=== PATIENT | female | born 1950 | race Caucasian/White ===

== ENCOUNTER → 2016-08-01 | Outpatient (CLI) | payer OTHER, MEDICAID ==
[2016-08-01 10:51] LABS: BASOPHILS % (AUTO) 0.7 % (0.2-1.0); EOSINOPHILS # (AUTO) 0.1 x10^3/uL (0.0-0.2); EOSINOPHILS % (AUTO) 1.5 % (0.9-2.9); HEMATOCRIT 38.7 % (36.0-47.0); HEMOGLOBIN 13.4 g/dL (12.0-16.0); LYMPHOCYTES # (AUTO) 2.1 X10^3/uL (1.3-2.9); MEAN CORPUSCULAR HEMOGLOBIN 28.3 pg (27.0-34.0); MEAN CORPUSCULAR HGB CONC 34.7 g/dL (33.0-35.0); MEAN CORPUSCULAR VOLUME 81.4 fL (80.0-100.0); MEAN PLATELET VOLUME 8.2 fL (7.4-11.0); MONOCYTES # (AUTO) 0.4 x10^3/uL (0.3-0.8); MONOCYTES % (AUTO) 6.5 % (0.0-13.0); NEUTROPHILS # (AUTO) 3.1 x10^3/uL (2.2-4.8); NEUTROPHILS % (AUTO) 54.3 % (42.0-75.0); PLATELET COUNT 213 X10^3/uL (150.0-450.0); RED BLOOD COUNT 4.75 X10^6/uL (3.5-5.4); RED CELL DISTRIBUTION WIDTH 13.9 % (11.6-16.5); WHITE BLOOD COUNT 5.7 X10^3/uL (3.6-10.0)
[2016-08-01 11:16] LABS: ALANINE AMINOTRANSFERASE 26 Units/L (12-78); ALBUMIN 3.6 g/dL (3.4-5.0); ALKALINE PHOSPHATASE 72 Units/L (46-116); ASPARTATE AMINO TRANSFERASE 24 Units/L (15-37); BLOOD UREA NITROGEN 14 mg/dL (7-18); CARBON DIOXIDE 29.7 mmol/L (21-32); CHLORIDE 107 mmol/L (98-107); CHOL/HDL RATIO 4.6 (0.0-5.0); CHOLESTEROL 197 mg/dL (0-200); CREATININE 0.82 mg/dL (0.55-1.02); GLUCOSE 104 mg/dL (65-99); HDL CHOLESTEROL 43 mg/dL (40-60); SODIUM 144 mmol/L (136-145); TRIGLYCERIDES 109 mg/dL (0-150); eGFR BLACK RACES > 60 (>60); eGFR NON BLACK RACES > 60 (>60)
== END ==
LOC: LAB 10:24
PROVIDERS: ATTEND Nurse Practitioner Family
DX: I10 Essential (primary) hypertension (principal); E78.2 Mixed hyperlipidemia; E56.8 Deficiency of other vitamins
CPT/HCPCS: 36415; 80053; 80061; 82306; 85025

== ENCOUNTER → 2016-08-15 | Outpatient (CLI) | payer OTHER, MEDICAID ==
--- NOTE | 2016-08-15 13:22 | MG ---
HISTORY: SCREENING Comparison: 06/16/2015, 01/03/2014, 06/12/2012 FINDINGS: Bilateral CC and MLO projections of the right and left breast were obtained. Heterogeneously dense fibroglandular tissue is seen to be present. No significant architectural distortion, mass or clust ered microcalcifications can be observed to suggest malignancy. No skin thickening or nipple retrac tion is appreciated. No pathological lymphadenopathy can be identified. Benign calcifications are seen in both breasts. IMPRESSION: NO RADIOGRAPHIC EVIDENCE OF MALIGNANCY. ACR CATEGORY I - NEGATIVE EXAM. FOLLOW-UP EXAM 1 YEAR. Diagnostic CAD was utilized and reviewed. * 0 (ZERO) - ASSESSMENT INCOMPLETE; ADDITIONAL IMAGING IS NEEDED. * 1/ (ONE) - NEGATIVE. * 2/II (TWO) - BENIGN FINDINGS. * 3/III (THREE) - PROBABLY BENIGN FINDING; SHORT INTERVAL FOLLOW-UP SUGGESTED. * 4/IV (FOUR) - SUSPICIOUS ABNORMALITY; BIOPSY SHOULD BE CONSIDERED. * 5/V - HIGHLY SUSPICIOUS OF MALIGNANCY; BIOPSY SHOULD BE PERFORMED. A NEGATIVE X-RAY REPORT SHOULD NOT DELAY BIOPSY IF A DOMINANT OR CLINICALLY SUSPICIOUS MASS IS PRESENT; 4 TO 8 PERCENT OF CANCERS ARE NOT IDENTIFIED BY X-RAY. A NEG ATIVE REPORT MAY REINFORCE THE CLINICAL IMPRESSION. ADENOSIS AND DENSE BREASTS MAY OBSCURE AN UNDER LYING NEOPLASM. Reported By:
== END ==
LOC: RAD 10:49
PROVIDERS: ATTEND Nurse Practitioner Family
DX: Z12.31 Encounter for screening mammogram for malignant neoplasm of breast (principal); Z87.898 Personal history of other specified conditions
CPT/HCPCS: 77067

== ENCOUNTER → 2016-11-14 | Outpatient (CLI) | payer OTHER, MEDICAID ==
[2016-11-14 10:27] LABS: BASOPHILS % (AUTO) 0.6 % (0.2-1.0); EOSINOPHILS # (AUTO) 0.1 x10^3/uL (0.0-0.2); EOSINOPHILS % (AUTO) 1.2 % (0.9-2.9); HEMATOCRIT 38.7 % (36.0-47.0); HEMOGLOBIN 13.6 g/dL (12.0-16.0); LYMPHOCYTES # (AUTO) 2.4 X10^3/uL (1.3-2.9); LYMPHOCYTES % (AUTO) 35.9 % (21.0-51.0); MEAN CORPUSCULAR HEMOGLOBIN 28.4 pg (27.0-34.0); MEAN CORPUSCULAR HGB CONC 35.2 g/dL (33.0-35.0); MEAN CORPUSCULAR VOLUME 80.6 fL (80.0-100.0); MEAN PLATELET VOLUME 9.1 fL (7.4-11.0); MONOCYTES # (AUTO) 0.4 x10^3/uL (0.3-0.8); MONOCYTES % (AUTO) 6.3 % (0.0-13.0); NEUTROPHILS # (AUTO) 3.7 x10^3/uL (2.2-4.8); PLATELET COUNT 220 X10^3/uL (150.0-450.0); RED CELL DISTRIBUTION WIDTH 13.5 % (11.6-16.5); WHITE BLOOD COUNT 6.7 X10^3/uL (3.6-10.0)
[2016-11-14 10:36] LABS: ALANINE AMINOTRANSFERASE 17 Units/L (12-78); ALBUMIN 3.6 g/dL (3.4-5.0); ALKALINE PHOSPHATASE 80 Units/L (46-116); ASPARTATE AMINO TRANSFERASE 20 Units/L (15-37); BLOOD UREA NITROGEN 17 mg/dL (7-18); CALCIUM 8.6 mg/dL (8.5-10.1); CARBON DIOXIDE 37.2 mmol/L (21-32); CHLORIDE 102 mmol/L (98-107); COR NA(FOR HYPERGLY) 141 mmol/L (136-145); CREATININE 1.02 mg/dL (0.55-1.02); DIGOXIN 0.87 ng/mL (0.9-2); GLUCOSE 117 mg/dL (65-99); SODIUM 141 mmol/L (136-145); TOTAL PROTEIN 7.1 g/dL (6.4-8.2); eGFR BLACK RACES > 60 (>60); eGFR NON BLACK RACES 58 (>60)
== END ==
LOC: LAB 09:54
PROVIDERS: ATTEND Nurse Practitioner Family
DX: I10 Essential (primary) hypertension (principal); Z79.899 Other long term (current) drug therapy
CPT/HCPCS: 36415; 80053; 80162; 85025

== ENCOUNTER → 2017-02-01 | Outpatient (CLI) | payer OTHER, MEDICAID ==
--- NOTE | 2017-02-01 12:00 | RAD ---
Examination: Cervical spine, three views History: Neck pain Comparison reference: None Findings: AP, lateral and open-mouth odontoid views demonstrate normal segmentation and alignment. t here is a mild levoscoliosis, as well as straightening of the normal lordotic curve. There is disc na rrowing with anterior osteophyte formation at C6-7. Impression: Mild degenerative disc changes at C6-7. Alteration in cervical curvature nonspecific but may reflect neck pain or muscle spasm. Reported By:
--- NOTE | 2017-02-01 12:01 | RAD ---
Examination: Thoracic spine, AP and lateral views History: Mid back pain Findings: There is a slight dextroscoliosis. Alignment of vertebrae is anatomic. Small marginal osteo phytes are present compatible with age. The pedicles are intact. There is no paraspinal mass. Impression: No acute or significant abnormality noted. Mild physiologic spondylosis. Reported By:
--- NOTE | 2017-02-01 12:01 | RAD ---
Indication: Back pain Exam: Lumbar spine series Technique: AP and lateral views Findings: The lumbar vertebra are well aligned. There is moderate disc space narrowing throughout whi ch is most severe at L3-4 with prominent osteophytes throughout. There is mild scoliosis. The pedicle s are intact. There are moderate sclerotic changes of facets inferiorly with no pars defects. Impression: Moderate degenerative disc changes throughout which is most prominent at L3-4 with no acute abnormali ty seen. Moderate osteoarthritic changes of the facets inferiorly. Reported By:
== END | disposition home or self-care (01) | DRG 552 ==
LOC: RAD 11:17
PROVIDERS: ATTEND Nurse Practitioner Family
DX: M54.2 Cervicalgia (principal); M54.6 Pain in thoracic spine; M54.5 Low back pain; M47.896 Other spondylosis, lumbar region; M47.894 Other spondylosis, thoracic region
CPT/HCPCS: 72040; 72072; 72100

== ENCOUNTER → 2017-05-03 | Outpatient (CLI) | payer OTHER, MEDICAID ==
[2017-05-03 10:20] LABS: BASOPHILS % (AUTO) 0.6 % (0.2-1.0); EOSINOPHILS # (AUTO) 0.1 x10^3/uL (0.0-0.2); EOSINOPHILS % (AUTO) 1.3 % (0.9-2.9); HEMATOCRIT 36.3 % (36.0-47.0); HEMOGLOBIN 12.6 g/dL (12.0-16.0); LYMPHOCYTES # (AUTO) 2.4 X10^3/uL (1.3-2.9); LYMPHOCYTES % (AUTO) 39.5 % (21.0-51.0); MEAN CORPUSCULAR HEMOGLOBIN 28.2 pg (27.0-34.0); MEAN CORPUSCULAR HGB CONC 34.8 g/dL (33.0-35.0); MEAN CORPUSCULAR VOLUME 81.1 fL (80.0-100.0); MEAN PLATELET VOLUME 8.1 fL (7.4-11.0); MONOCYTES # (AUTO) 0.4 x10^3/uL (0.3-0.8); NEUTROPHILS # (AUTO) 3.2 x10^3/uL (2.2-4.8); NEUTROPHILS % (AUTO) 52.6 % (42.0-75.0); PLATELET COUNT 213 X10^3/uL (150.0-450.0); RED BLOOD COUNT 4.48 X10^6/uL (3.5-5.4); RED CELL DISTRIBUTION WIDTH 13.6 % (11.6-16.5)
[2017-05-03 10:49] LABS: ALANINE AMINOTRANSFERASE 18 Units/L (12-78); ALBUMIN 3.2 g/dL (3.4-5.0); ALKALINE PHOSPHATASE 81 Units/L (46-116); ASPARTATE AMINO TRANSFERASE 17 Units/L (15-37); BLOOD UREA NITROGEN 13 mg/dL (7-18); CALCIUM 8.6 mg/dL (8.5-10.1); CARBON DIOXIDE 30.6 mmol/L (21-32); CHLORIDE 109 mmol/L (98-107); CHOL/HDL RATIO 4.7 (0.0-5.0); CHOLESTEROL 192 mg/dL (0-200); COR CA(FOR HYPOALB) 9.2 mg/dL (8.5-10.1); COR NA(FOR HYPERGLY) 144 mmol/L (136-145); CREATININE 0.82 mg/dL (0.55-1.02); DIGOXIN < 0.20 ng/mL (0.9-2); HDL CHOLESTEROL 41 mg/dL (40-60); SODIUM 144 mmol/L (136-145); TOTAL PROTEIN 6.6 g/dL (6.4-8.2); TRIGLYCERIDES 124 mg/dL (0-150); eGFR BLACK RACES > 60 (>60); eGFR NON BLACK RACES > 60 (>60)
[2017-05-03 10:58] LABS: ERYTHROCYTE SEDIMENTATION RATE 11 MM/HOUR (0-20)
== END ==
LOC: LAB 09:46
PROVIDERS: ATTEND Nurse Practitioner Family
DX: Z51.81 Encounter for therapeutic drug level monitoring (principal); M15.0 Primary generalized (osteo)arthritis; E78.2 Mixed hyperlipidemia; I49.8 Other specified cardiac arrhythmias
CPT/HCPCS: 36415; 80053; 80061; 80162; 85025; 85652; 86140

== ENCOUNTER 2024-12-17 11:31 | Observation (INO) ==
--- NOTE | 2024-12-17 12:41 | DR.EXTPAIN ---
HPI Time seen Time Seen by Provider: 12/17/24 12:40 PCP Primary Care Physician: BAUDILIO Balbuena Complaint/Symptoms Chief Complaint Doctor Comments: 74-year-old female from home POV to ED complaining of bilateral upper extremity pain and tingling. Onset yesterday worse today Chief Complaint:: Pt states that she woke up yesterday around 9am with a sudden onset of numbness in her left hand. This has continued constantly since then. Denies any pain or tingling. Pt also c/o decreased dexterity in bilateral hands. COVID-19 Coronavirus risk:travel/contact w/high risk person: No Has patient experienced Coronavirus symptoms: No Source History Provided: Patient Mode of arrival Mode of Arrival: Ambulatory Timing Onset of Chief Complaint: 12/16/24 PMH PMH Past Medical History: Yes Past Medical History: Anxiety, Dyslipidemia, GERD, Hypertension and Sleep Apnea Past Medical History Comment: fibromyalgia,IBS Past Surgical History: Yes Surgical History: Hysterectomy Family History History of Family Medical Conditions: Yes Family Medical History: Diabetes Mellitus, Cancer, [place], Coronary Artery Disease, Heart Failure and Hypertension Social History Does patient currently use any type of tobacco product: No Have you used tobacco products in the last 12 months: No Type of Tobacco Use: None Does any household member use tobacco: No Alcohol Use: None Do you use any recreational Drugs:: No Lives With: Alone Lives Where: Home Travel Risk Coronavirus risk:travel/contact w/high risk person: No Has patient experienced Coronavirus symptoms: No Infectious screening In the last 2 months have you had wt loss of >10#?: NO Have you had fever, night sweats or hemotysis?: No Have you traveled outside the country in the last 6 months?: No Isolation: Standard ROS Review of Systems Constitutional: No Symptoms Reported Eyes: No Symptoms Reported ENTM: No Symptoms Reported Respiratoy: No Symptoms Reported Cardiovascular: No Symptoms Reported Gastrointestinal/Abdominal: No Symptoms Reported Genitourinary: No Symptoms Reported Neurological: Tingling Musculoskeletal: No Symptoms Reported Integumentary: No Symptoms Reported Hematologic/Lymphatic: No Symptoms Reported Endocrine: No Symptoms Reported Psychiatric: No Symptoms Reported All Other Systems: Reviewed and Negative PE Vital Signs Vitals: Vital Signs Temperature 98.1 F Pulse Rate 62 Respiratory Rate 20 Blood Pressure 156/80 Blood Pressure 194/77 O2 Sat by Pulse Oximetry 98 General Limitations: No Limitations General Appearance: Alert and In No Apparent Distress Head Head Exam: Normal Inspection Eyes Eye exam: Normal Appearance ENT ENT Exam: Normal Exam Neck Neck Exam: Normal Inspection Chest Chest Inspection: Normal Inspection Respiratory Respiratory Exam: Normal Lung Sounds Bilat Cardiovascular Cardiovascular Exam: Regular Rate and Normal Rhythm Abdominal Exam Abdominal Exam: Normal Inspection, Normal Bowel Sounds and Soft Extremities Extremities Exam: Normal Inspection (Exception subjective numbness left palmar surface of hand Full range of motion neurovascular intact) Back Back Exam: Normal Inspection Neurological Neurological Exam: Alert, Oriented X3 (No focal nerve signs), CN II-XII Intact, Normal Gait and Motor Sensory Deficit Psychiatric Psychiatric Exam: Normal Affect and Normal Mood Skin Skin Exam: Warm, Dry, Intact and Normal Color COURSE Treatment Treatment: Radiology called with CT read MPRESSION: 1. Suspected acute to subacute right frontoparietal 3.3 x 1.3 cm infarction. 2. No evidence of hemorrhage Ordered teleneuro consult - Discussed with teleneuro recommends Plavix recommends admission with further workup Discussed with Dr. Mcarthur Will admit admission orders placed ROR Labs Reviewed 12/17/24 12:51 12/17/24 12:51 Laboratory: WBC 7.9 X10^3/uL (3.6-10.0) 12/17/24 12:51 RBC 4.39 X10^6/uL (3.5-5.4) 12/17/24 12:51 Hgb 12.7 g/dL (12.0-16.0) 12/17/24 12:51 Hct 37.0 % (36.0-47.0) 12/17/24 12:51 MCV 84.1 fL (80.0-100.0) 12/17/24 12:51 MCH 28.8 pg (27.0-34.0) 12/17/24 12:51 MCHC 34.3 g/dL (33.0-35.0) 12/17/24 12:51 RDW 13.5 % (11.6-16.5) 12/17/24 12:51 Plt Count 243 X10^3/uL (150.0-450.0) 12/17/24 12:51 MPV 8.4 fL (7.4-11.0) 12/17/24 12:51 Neut % (Auto) 63.7 % (42.0-75.0) 12/17/24 12:51 Lymph % (Auto) 30.0 % (21.0-51.0) 12/17/24 12:51 [place] % (Auto) 5.0 % (0.0-13.0) 12/17/24 12:51 Eos % (Auto) 0.6 % (0.9-2.9) L 12/17/24 12:51 Baso % (Auto) 0.7 % (0.2-1.0) 12/17/24 12:51 Neut # (Auto) 5.0 x10^3/uL (2.2-4.8) H 12/17/24 12:51 Lymph # (Auto) 2.4 X10^3/uL (1.3-2.9) 12/17/24 12:51 [place] # (Auto) 0.4 x10^3/uL (0.3-0.8) 12/17/24 12:51 Eos # (Auto) 0.0 x10^3/uL (0.0-0.2) 12/17/24 12:51 Baso # (Auto) 0.1 X10^3/uL (0.0-0.1) 12/17/24 12:51 Absolute Nucleated RBC 0.1 /100WBC 12/17/24 12:51 Sodium 143 mmol/L (136-145) 12/17/24 12:51 Corrected Sodium TNP 12/17/24 12:51 Potassium 3.5 mmol/L (3.5-5.1) 12/17/24 12:51 Chloride 108 mmol/L (98-107) H 12/17/24 12:51 Carbon Dioxide 28.1 mmol/L (21-32) 12/17/24 12:51 BUN 13 mg/dL (7-18) 12/17/24 12:51 Creatinine 1.06 mg/dL (0.55-1.02) H 12/17/24 12:51 Est GFR (MDRD) Af Amer > 60 (>60) 12/17/24 12:51 Est GFR (MDRD) Non-Af 54 (>60) L 12/17/24 12:51 Glucose 110 mg/dL (65-99) H 12/17/24 12:51 Calcium 8.9 mg/dL (8.5-10.1) 12/17/24 12:51 Corrected Calcium TNP 12/17/24 12:51 Total Bilirubin 0.80 mg/dL (0.2-1.0) 12/17/24 12:51 AST 22 Units/L (15-37) 12/17/24 12:51 ALT 11 Units/L (12-78) L 12/17/24 12:51 Alkaline Phosphatase 90 Units/L (46-116) 12/17/24 12:51 Total Protein 7.1 g/dL (6.4-8.2) 12/17/24 12:51 Albumin 3.6 g/dL (3.4-5.0) 12/17/24 12:51 Globulin 3.5 g/dL (2.5-4.5) 12/17/24 12:51 Albumin/Globulin Ratio 1.0 Ratio (1.1-2.1) L 12/17/24 12:51 Specimen Type Clean catch urine 12/17/24 12:59 Urine Color [place] (YELLOW) 12/17/24 12:59 Urine Appearance Clear (CLEAR) 12/17/24 12:59 Urine pH 5.0 (5.0 - 8.0) 12/17/24 12:59 Ur Specific [place] 1.030 (1.000-1.030) 12/17/24 12:59 Urine Protein 2+ (NEGATIVE) 12/17/24 12:59 Urine Glucose (UA) Negative (NEGATIVE) 12/17/24 12:59 Urine Ketones 1+ (NEGATIVE) 12/17/24 12:59 Urine Blood 1+ (NEGATIVE) 12/17/24 12:59 Urine Nitrite Negative (NEGATIVE) 12/17/24 12:59 Urine Bilirubin 1+ (NEGATIVE) 12/17/24 12:59 Urine Urobilinogen 2+ (NORMAL) 12/17/24 12:59 Ur Leukocyte Esterase 1+ (NEGATIVE) 12/17/24 12:59 Urine RBC 3-5 /HPF (0-3) A 12/17/24 12:59 Urine WBC 3-5 /HPF (0-5) 12/17/24 12:59 Ur Squamous Epith Cells Few /HPF (NEGATIVE) 12/17/24 12:59 Amorphous Sediment 1+ /HPF (NEGATIVE) 12/17/24 12:59 Urine Bacteria Trace /HPF (NEGATIVE) 12/17/24 12:59 Hyaline Casts Few /LPF (NEGATIVE) 12/17/24 12:59 Urine Mucus Many /HPF (NEGATIVE) 12/17/24 12:59 Ur Culture Indicated? No/not indicated 12/17/24 12:59 Urine Opiates Screen Negative (NEG=<300) 12/17/24 12:59 Urine Methadone Screen Negative (NEG=<300) 12/17/24 12:59 Ur Barbiturates Screen Negative (NEG=<200) 12/17/24 12:59 Ur Phencyclidine Scrn Negative (NEG=<25) 12/17/24 12:59 Ur Amphetamines Screen Negative (NEG=<1000) 12/17/24 12:59 U Benzodiazepines Scrn Negative (NEG=<200) 12/17/24 12:59 Urine Cocaine Screen Negative (NEG=<300) 12/17/24 12:59 U Marijuana (THC) Screen Negative (NEG=<50) 12/17/24 12:59 XRAY X-ray Results: Diagnostics Reports FREDERICK GEORGE [id number] Allergy/Adv: aspirin, atorvastatin, Penicillins, Sulfa (Sulfonamide Antibiotics), tramadol Name: FREDERICK GEORGE : 1950 Sex: F Location: Order Number(s): [id number] Procedure(s):HEAD (TRAUMA) CT Ordering Physician: Jose Choi Primary Care: Sade Acosta Service Date: 12/17/24 Service Time: 1241 EXAM: CT HEAD WITHOUT CONTRAST HISTORY: Pt states that she woke up yesterday around 9am with a sudden onset of numbness in her left hand. This has continued constantly since then. Denies any pain or tingling. Pt also c/o decreased dexterity in bilateral hands.; COMPARISON: None. TECHNIQUE: Axial CT images were obtained through the brain without contrast. All CT scans at this facility use dose modulation, iterative reconstruction, and/or weight based dosing when appropriate to reduce radiation dose to as low as reasonably achievable. FINDINGS: No acute intracranial hemorrhage or extra-axial fluid collection. No mass effect or midline shift. Right frontoparietal 3.3 x 1.3 area of hypoattenuation and mitchell-white differentiation loss. 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 No mass effect or midline shift. No hydrocephalus. Paranasal sinuses and mastoid air cells are well-aerated. Intact calvarium. IMPRESSION: 1. Suspected acute to subacute right frontoparietal 3.3 x 1.3 cm infarction. 2. No evidence of hemorrhage. THIS IS AN ELECTRONICALLY VERIFIED FINAL REPORT 12/17/2024 1:41 PM - Electronically signed by Sujit Beltran MD Opioid Opioid Risk Tool Age (Aly box if 16-45): No History of Preadolescent Sexual Abuse: No Total: 0 Total Score Risk Category: Low Risk Copyright: [facility] predicting aberrant behaviors Discharge Plan Diagnosis Discharge Problem: Focal infarction of brain Discharge Plan Patient Disposition: 09 ADMITTED INPATIENT Condition: Stable Prescriptions: No Action chlorthalidone 25 mg tablet 25 mg PO QDAY 90 Days Qty: 90 0RF rosuvastatin 10 mg tablet 10 mg PO QHS MDD 1 90 Days Qty: 90 0RF escitalopram oxalate 20 mg tablet 20 mg PO QDAY MDD 1 90 Days Qty: 90 0RF omeprazole 40 mg capsule,delayed release(DR/EC) 40 mg PO QDAY MDD 1 90 Days Qty: 90 0RF diclofenac sodium [Voltaren Arthritis Pain] 1 % gel 2 g topical QID MDD 4 grams 30 Days Qty: 100 3RF naproxen sodium [Aleve] 220 mg tablet 220 mg PO Q12H MDD 2 PRN (Reason: pain/knee) 10 Days Qty: 20 0RF Rx Instructions: Samples shared with pt to take w/ food short term # 2 x 10 sample packs = 20 tabs Drysol Dab-O-Matic 20 % solution 1 applic topical 2XW MDD 2 times a week PRN (Reason: excessive moisture) Qty: 35 0RF docusate sodium [Colace] 100 mg capsule 100 mg PO QDAY MDD 1 PRN (Reason: constipation/as needed use when needed) 90 Days Qty: 90 0RF losartan 100 mg tablet 100 mg PO QDAY Qty: 90 0RF lubiprostone 8 mcg capsule 8 mcg PO QDAY MDD 1 90 Days Qty: 90 0RF metoprolol tartrate 50 mg tablet 50 mg PO Q12H MDD 2 90 Days Qty: 180 0RF potassium chloride 20 mEq tablet,ER particles/crystals 20 meq PO QDAY MDD 1 90 Days Qty: 90 0RF verapamil 300 mg capsule, [address] 300 mg PO QHS MDD 1 30 Days Qty: 30 2RF Rx Instructions: remind patient to d/c amlodipine Health Concerns: Post Hospitalization: new medications and changes needed to prevent readmission or further decline. Pt educated and given instructions on all concerns. Plan of Treatment: Continue with present treatment and follow up plan. Pt is to keep follow up appointment as instructed and take medications as ordered. Follow ups/Referrals Follow ups/Referrals: SADE ACOSTA FNP [Primary Care Provider, MEDICAL] - 3 days Instructions Print Language: KYRGYZ
[2024-12-17 13:06] LABS: MEAN PLATELET VOLUME 8.4 fL (7.4-11.0); RED CELL DISTRIBUTION WIDTH 13.5 % (11.6-16.5)
[2024-12-17 13:12] LABS: BLOOD/HEMOGLOBIN,URINE 1+ (NEGATIVE); LEUKOCYTE ESTERASE ,URINE 1+ (NEGATIVE); NITRITES,URINE NEGATIVE (NEGATIVE)
[2024-12-17 13:17] LABS: CREATININE 1.06 mg/dL (0.55-1.02); eGFR NON BLACK RACES 54 (>60)
[2024-12-17 13:19] LABS: APPEARANCE,URINE CLEAR (CLEAR)
[2024-12-17 13:20] LABS: HYALINE CASTS, URINE FEW /LPF (NEGATIVE); SQUAMOUS EPITHELIAL CELL,UR FEW /HPF (NEGATIVE)
--- NOTE | 2024-12-17 13:44 | CT ---
EXAM: CT HEAD WITHOUT CONTRAST HISTORY: Pt states that she woke up yesterday around 9am with a sudden onset of numbness in her left hand. This has continued constantly since then. Denies any pain or tingling. Pt also c/o decreased dexterity in bilateral hands.; COMPARISON: None. TECHNIQUE: Axial CT images were obtained through the brain without contrast. All CT scans at this facility use dose modulation, iterative reconstruction, and/or weight based dosing when appropriate to reduce radiation dose to as low as reasonably achievable. FINDINGS: No acute intracranial hemorrhage or extra-axial fluid collection. No mass effect or midline shift. Right frontoparietal 3.3 x 1.3 area of hypoattenuation and mitchell-white differentiation loss. 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 No mass effect or midline shift. No hydrocephalus. Paranasal sinuses and mastoid air cells are well-aerated. Intact calvarium. IMPRESSION: 1. Suspected acute to subacute right frontoparietal 3.3 x 1.3 cm infarction. 2. No evidence of hemorrhage. THIS IS AN ELECTRONICALLY VERIFIED FINAL REPORT 12/17/2024 1:41 PM - Electronically signed by Sujit Beltran MD
[2024-12-17 14:19] LABS: INR 1.09 (0.8-1.3)
[2024-12-17] MEDS: PLAVIX PO ONE (14:45)
[2024-12-17] MEDS ORDERED: TYLENOL 325 MG TAB PO PRN (14:50)
[2024-12-17] MEDS ORDERED: ULTRAM PO PRN (14:50)
[2024-12-17] MEDS ORDERED: CONSULT PHARMACY - POTASSIUM & MAGNESIUM XX SCH (15:00)
--- NOTE | 2024-12-17 15:38 | TELESTROKE ---
[facility] Consult Date of Consult Date of Exam: 12/17/24 Time of Arrival to the ED: 11:31 Allergies Allergies Allergy/AdvReac Type Severity Reaction Status Date / Time aspirin Allergy Unknown Verified 03/13/24 18:16 atorvastatin (Lipitor) Allergy Unknown Verified 12/06/22 10:56 Penicillins Allergy Unknown Verified 12/06/22 10:56 Sulfa (Sulfonamide Allergy Unknown Itching; Verified 12/06/22 10:56 Antibiotics) Rash tramadol Allergy Unknown Verified 12/06/22 10:56 Vital Signs Vital Signs: Temp Pulse Resp BP Pulse Ox O2 Del Method 12/17/24 12:30 156/80 12/17/24 11:46 98.1 F 62 20 194/77 98 Room Air History of Present Illness History of Present Illness: [facility] Patient Name:Christy Wynne Date of :1950 Identification Number: Date of Service:12/17/2024 13:58:05 Diagnosis:I63.89 - Cerebrovascular accident (CVA) due to other mechanism ([facility]) Impression: 74 years old right handed woman with history of HTN presents complaining of paresthesia to the left hand since last night at 23:00. She denies associated symptoms. Current NIHSS is 0. NCCT shows an area of acute/subacute infarction in the right frontoparietal area. Recommend to initiate Plavix 75 mg and to admit for further work-up. Allow for permissive HTN. Inpatient Neurology to follow. Our recommendations are outlined below. Recommendations: Stroke/Telemetry Floor Neuro Checks (Q4) Bedside Swallow Eval DVT Prophylaxis IV Fluids, Normal Saline Head of Bed 30 Degrees Euglycemia and Avoid Hyperthermia (PRN Acetaminophen) Initiate dual antiplatelet therapy with Aspirin 81 mg daily and Clopidogrel 75 mg daily. Antihypertensives PRN if Blood pressure is greater than 220/120 or there is a concern for End organ damage/contraindications for permissive HTN. If blood pressure is greater than 220/120 give labetalol PO or IV or Vasotec IV with a goal of 15% reduction in BP during the first 24 hours. Sign Out: Discussed with Emergency Department Provider Advanced Imaging: Advanced Imaging Deferred because: Non-disabling symptoms as verified by the patient; no cortical signs so not consistent with LVO Metrics: Last Known Well: 12/16/2024 23:00:00 Dispatch Time: 12/17/2024 13:58:04 Arrival Time: 12/17/2024 11:31:00 Initial Response Time: 12/17/2024 13:58:04Symptoms: Left hand numbness. Initial patient interaction: 12/17/2024 14:00:52 NIHSS Assessment Completed: 12/17/2024 14:07:02Patient is not a candidate for Thrombolytic. Thrombolytic Medical Decision: 12/17/2024 14:07:04Patient was not deemed candidate for Thrombolytic because of following reasons: LKW outside 4.[address] Head: I personally reviewed all the CT images that were available to me and it showed: possible acute infarction right frontoparietal area Primary Provider Notified of Diagnostic Impression and Management Plan on: 12/17/2024 14:12:16 History of Present Illness:Patient is a 74 year old Female. Patient was brought by private transportation with symptoms of Left hand numbness. Patient is a 74 years old right handed woman with history of HTN who presents to the ED complaining of numbness to the left hand that started suddenly last night at 23:00. She denies any other associated symptoms as dizziness, headache, weakness, or difficulty walking. Past Medical History: Hypertension There is no history of Diabetes Mellitus There is no history of Stroke Medications: No Anticoagulant use No Antiplatelet use Reviewed EMR for current medications Allergies: Reviewed Description:aspirin Social History: Smoking: No Alcohol Use: No Family History: There is no family history of premature cerebrovascular disease pertinent to this consultation ROS : 14 Points Review of Systems was performed and was negative except mentioned in HPI. Past Surgical History: There Is No Surgical History Contributory To Todays Visit Examination: BP(156/87),Pulse(62), 1A: Level of Consciousness - Alert; keenly responsive+ 0 1B: Ask Month and Age - Both Questions Right+ 0 1C: Blink Eyes & Squeeze Hands - Performs Both Tasks+ 0 2: Test Horizontal Extraocular Movements - Normal+ 0 3: Test Visual Zhou - No Visual Loss+ 0 4: Test Facial Palsy (Use Grimace if Obtunded) - Normal symmetry+ 0 5A: Test Left Arm Motor Drift - No Drift for 10 Seconds+ 0 5B: Test Right Arm Motor Drift - No Drift for 10 Seconds+ 0 6A: Test Left Leg Motor Drift - No Drift for 5 Seconds+ 0 6B: Test Right Leg Motor Drift - No Drift for 5 Seconds+ 0 7: Test Limb Ataxia (FNF/Heel-Ho) - No Ataxia+ 0 8: Test Sensation - Normal; No sensory loss+ 0 9: Test Language/Aphasia - Normal; No aphasia+ 0 10: Test Dysarthria - Normal+ 0 11: Test Extinction/Inattention - No abnormality+ 0 NIHSS Score:0 Pre-Morbid Modified Florence Scale:0 Points = No symptoms at all Spoke with :Dr. Choi This consult was conducted in real time using interactive audio and video technology. Patient was informed of the technology being used for this visit and agreed to proceed. Patient located in hospital and provider located at home/office setting. Patient is being evaluated for possible acute neurologic impairment and high probability of imminent or life-threatening deterioration. I spent total of 35 minutes providing care to this patient, including time for face to face visit via telemedicine, review of medical records, imaging studies and discussion of findings with providers, the patient and/or family. Dr Brenda Yanez [facility] For Inpatient follow-up with [facility] physician please call [facility] at . As we are not an outpatient service for any post hospital discharge needs please contact the hospital for assistance. If you have any questions for the [facility] physicians or need to reconsult for clinical or diagnostic changes please contact us via [facility] at . Signature :Brenda Yanez Medical Decision Making 12/17/24 12:51 12/17/24 12:51 Labs: Laboratory Results - last 24 hr 12/17/24 12/17/24 12:51 12:59 WBC 7.9 RBC 4.39 Hgb 12.7 Hct 37.0 MCV 84.1 MCH 28.8 MCHC 34.3 RDW 13.5 Plt Count 243 MPV 8.4 Neut % (Auto) 63.7 Lymph % (Auto) 30.0 [place] % (Auto) 5.0 Eos % (Auto) 0.6 L Baso % (Auto) 0.7 Neut # (Auto) 5.0 H Lymph # (Auto) 2.4 Dare # (Auto) 0.4 Eos # (Auto) 0.0 Baso # (Auto) 0.1 Absolute Nucleated RBC 0.1 Sodium 143 Corrected Sodium TNP Potassium 3.5 Chloride 108 H Carbon Dioxide 28.1 BUN 13 Creatinine 1.06 H Est GFR (MDRD) Af Amer > 60 Est GFR (MDRD) Non-Af 54 L Glucose 110 H Calcium 8.9 Corrected Calcium TNP Total Bilirubin 0.80 AST 22 ALT 11 L Alkaline Phosphatase 90 Total Protein 7.1 Albumin 3.6 Globulin 3.5 Albumin/Globulin Ratio 1.0 L Specimen Type Clean catch urine Urine Color [place] Urine Appearance Clear Urine pH 5.0 Ur Specific [place] 1.030 Urine Protein 2+ Urine Glucose (UA) Negative Urine Ketones 1+ Urine Blood 1+ Urine Nitrite Negative Urine Bilirubin 1+ Urine Urobilinogen 2+ Ur Leukocyte Esterase 1+ Urine RBC 3-5 A Urine WBC 3-5 Ur Squamous Epith Cells Few Amorphous Sediment 1+ Urine Bacteria Trace Hyaline Casts Few Urine Mucus Many Ur Culture Indicated? No/not indicated Urine Opiates Screen Negative Urine Methadone Screen Negative Ur Barbiturates Screen Negative Ur Phencyclidine Scrn Negative Ur Amphetamines Screen Negative U Benzodiazepines Scrn Negative Urine Cocaine Screen Negative U Marijuana (THC) Screen Negative
[2024-12-17] MEDS: LOPRESSOR TAB 50 MG PO SCH (16:03)
[2024-12-17] MEDS: K-DUR TAB 20 MEQ PO SCH (16:03)
--- NOTE | 2024-12-17 17:04 | MRI ---
EXAMINATION: BRAIN W/O CON HISTORY: AMS/ POSS. STROKE ; . COMPARISON STUDY: CT brain 12/17/2024 TECHNIQUE: Sagittal T1, axial T1, axial T2, axial proton density, axial diffusion weighted images and coronal FLAIR images were obtained through the brain. FINDINGS: There is restricted diffusion within the right frontoparietal region representing nonhemorrhagic acute infarct in this region. No hemorrhage, midline shift or obstructive hydrocephalus. Atrophy and deep white matter ischemic changes. Encephalomalacia within the right occipital region. Anaya-white matter differentiation is maintained throughout. There are no intra-axial or extra-axial collections noted. There are normal flow voids within the middle cerebral arteries as well as the basilar artery. . Globes and retro-orbital structures are unremarkable. The sinuses demonstrate chronic right maxillary and ethmoid sinusitis. Cerebellopontine angles are normal. On the sagittal images cervicomedullary junction is normal. Normal bone marrow signal is seen within the clivus and cervical spine. Pituitary is unremarkable. Normal midline structures are present. There is no other abnormal signal on the FLAIR, diffusion weighted sequences and gradient echo images.. IMPRESSION: Acute nonhemorrhagic infarct within the right frontoparietal region. No midline shift or obstructive hydrocephalus. Atrophy and deep white matter ischemic changes. Encephalomalacia in the right occipital region. No restricted diffusion in this region. THIS IS AN ELECTRONICALLY VERIFIED FINAL REPORT 12/17/2024 5:00 PM - Electronically signed by Forest Mejias MD
[2024-12-17 18:12] VITALS: BMI 24.2
[2024-12-17] MEDS: CALAN SR 240 MG PO SCH (20:59)
[2024-12-17] MEDS ORDERED: VERAPAMIL PO SCH (21:00)
[2024-12-17] MEDS: VISTARIL PO PRN (22:40)
[2024-12-17] MEDS: OMNIPAQUE 350 mg/mL 100 mL BTL 100 ML ONE (22:42)
[2024-12-17] MEDS: PLAVIX ONE (22:42)
[2024-12-18 06:13] LABS: MEAN PLATELET VOLUME 9.1 fL (7.4-11.0); RED CELL DISTRIBUTION WIDTH 13.7 % (11.6-16.5)
[2024-12-18 06:32] LABS: COR CA(FOR HYPOALB) 9.2 mg/dL (8.5-10.1); CREATININE 0.89 mg/dL (0.55-1.02); eGFR NON BLACK RACES > 60 (>60)
[2024-12-18] MEDS ORDERED: CONSULT PHARMACY - POTASSIUM & MAGNESIUM XX SCH ×2 (07:00)
[2024-12-18] MEDS ORDERED: LEXAPRO ONE (08:39)
[2024-12-18] MEDS: CHLORTHALIDONE PO SCH (08:56)
[2024-12-18] MEDS: PLAVIX PO SCH (08:56)
[2024-12-18] MEDS: LEXAPRO PO SCH (08:57)
[2024-12-18] MEDS: K-DUR TAB 20 MEQ PO ONE (08:57)
[2024-12-18] MEDS: COZAAR PO SCH (08:57)
[2024-12-18] MEDS ORDERED: OMNIPAQUE 350 mg/mL 100 mL BTL 100 ML ONE (10:46)
--- NOTE | 2024-12-18 11:48 | CT ---
EXAM: CT ARTERIOGRAM NECK WITH CONTRAST AND 3D REFORMATIONS HISTORY: cva, hand numb; . COMPARISON: CT head dated 12/17/2024. TECHNIQUE: Axial CTA images were obtained from the aortic arch through the skull base after uneventful administration of contrast. Coronal, sagittal as well as 3D reformations were post processed on an independent workstation. When appropriate, NASCET criteria was used for the estimation of stenosis. All CT scans at this facility use dose modulation, iterative reconstruction, and/or weight based dosing when appropriate to reduce radiation dose to as low as reasonably achievable. FINDINGS: Left carotid: Proximal left common carotid artery is obscured by streak artifact from contrast bolus in the left innominate vein. Visualized left common carotid artery is widely patent. Mild calcified plaque at the left carotid bifurcation without stenosis. Left internal carotid artery is widely patent. Right carotid: Widely patent right common carotid artery. Patent right carotid bifurcation and right internal carotid artery without occlusion or evidence of stenosis. Vertebral arteries: Left dominant vertebral artery is widely patent. Right dominant is somewhat diminutive without focal occlusion or stenosis identified. Aortic arch: Partially obscured by contrast bolus artifact. Visualized portion of the aortic arch are normal caliber with mild calcified plaque. BONES: No acute osseous findings. Mild cervical spondylosis with reversal of lordosis centered at C4-C5. ADDITIONAL FINDINGS: No acute findings in the soft tissues of the neck. Mild emphysema in the visualized lungs. IMPRESSION: No evidence of focal stenosis or occlusion in the carotid or vertebral arteries. THIS IS AN ELECTRONICALLY VERIFIED FINAL REPORT 12/18/2024 11:45 AM - Electronically signed by Sujit Beltran MD
--- NOTE | 2024-12-18 12:57 | DR.H&P ---
H&P History & Physical for Day of: H&P Date: 12/18/24 Chief Complaint Chief Complaint: left hand tingling History of Present Illness History of Present Illness: Patient is a 74-year-old female with a past medical history of hypertension, depression, hyperlipidemia and GERD presented with 2- day history of left hand tingling. She denies any weakness of her arm or leg. Denies any difficulty in swallowing or changes in her speech. ER workup included CT brain which did show acute to subacute infarct. Teleneuro consult was done and recommended Plavix since patient is allergic to aspirin. MRI brain was ordered which also showed acute frontoparietal region infarct. Patient was admitted for further management. She does report some tingling in her left hand, denies any other neurological deficits. Labs/imaging reviewed: -WBC 8.2 hemoglobin 11.7 potassium 3.7 creatinine 0.89 glucose 95 - CT brain and MRI brain reviewed - UA negative Plan: Admit to [facility] with telemetry. Neurochecks. PT/OT consult. CTA neck pending. Continue Plavix. Patient reports having a rash with aspirin. Increase Crestor dose. Discussed lifestyle modifications. Resume home medications as appropriate. Replace electrolytes as per protocol. Monitor a.m. labs and imaging. Concern for clinical assessment, reviewing labs and imaging, physical exam, decision making and documentation greater than 45 minutes. Past Medical History Past Medical History: Anxiety, Dyslipidemia, GERD, Hypertension and Sleep Apnea Past Surgical History Surgical History: Hysterectomy Family History Family Medical History: Diabetes Mellitus, Cancer, [place], Coronary Artery Disease, Heart Failure and Hypertension Social History Does patient currently use any type of tobacco product: No Have you used tobacco products in the last 12 months: No Type of Tobacco Use: None Does any household member use tobacco: No Alcohol Use: None Drug Use: None Medications Home Medications: Home Medications Medication Instructions Recorded Confirmed Type tizanidine 4 mg tablet 4 mg PO BID PRN muscle spasm 12/17/24 12/17/24 History Allergies Allergies Allergy/AdvReac Type Severity Reaction Status Date / Time aspirin Allergy Unknown Verified 03/13/24 18:16 atorvastatin (Lipitor) Allergy Unknown Verified 12/06/22 10:56 Penicillins Allergy Unknown Verified 12/06/22 10:56 Sulfa (Sulfonamide Allergy Unknown Itching; Verified 12/06/22 10:56 Antibiotics) Rash tramadol Allergy Unknown Verified 12/06/22 10:56 NSAIDS (Non-Steroidal Allergy Verified 12/17/24 17:31 Anti-Inflamma benzyl benzoate Allergy Uncoded 12/17/24 17:31 beta-adrenergic blockers Allergy Uncoded 12/17/24 17:31 celecoxib congeners Allergy Uncoded 12/17/24 17:31 loop diuretics Allergy Uncoded 12/17/24 17:31 polymyxins Allergy Uncoded 12/17/24 17:31 Labs 12/18/24 05:07 12/18/24 05:07 Labs: Laboratory WBC 8.2 X10^3/uL (3.6-10.0) 12/18/24 05:07 RBC 3.96 X10^6/uL (3.5-5.4) 12/18/24 05:07 Hgb 11.7 g/dL (12.0-16.0) L 12/18/24 05:07 Hct 33.1 % (36.0-47.0) L 12/18/24 05:07 MCV 83.6 fL (80.0-100.0) 12/18/24 05:07 MCH 29.6 pg (27.0-34.0) 12/18/24 05:07 MCHC 35.4 g/dL (33.0-35.0) H 12/18/24 05:07 RDW 13.7 % (11.6-16.5) 12/18/24 05:07 Plt Count 228 X10^3/uL (150.0-450.0) 12/18/24 05:07 MPV 9.1 fL (7.4-11.0) 12/18/24 05:07 Neut % (Auto) 53.6 % (42.0-75.0) 12/18/24 05:07 Lymph % (Auto) 38.2 % (21.0-51.0) 12/18/24 05:07 [place] % (Auto) 6.2 % (0.0-13.0) 12/18/24 05:07 Eos % (Auto) 1.6 % (0.9-2.9) 12/18/24 05:07 Baso % (Auto) 0.4 % (0.2-1.0) 12/18/24 05:07 Neut # (Auto) 4.4 x10^3/uL (2.2-4.8) 12/18/24 05:07 Lymph # (Auto) 3.1 X10^3/uL (1.3-2.9) H 12/18/24 05:07 [place] # (Auto) 0.5 x10^3/uL (0.3-0.8) 12/18/24 05:07 Eos # (Auto) 0.1 x10^3/uL (0.0-0.2) 12/18/24 05:07 Baso # (Auto) 0.0 X10^3/uL (0.0-0.1) 12/18/24 05:07 Absolute Nucleated RBC 0.2 /100WBC 12/18/24 05:07 PT 14.2 SECONDS (11.8-14.3) 12/17/24 12:51 INR Target Range - 12/17/24 12:51 INR 1.09 (0.8-1.3) 12/17/24 12:51 APTT 26.5 SECONDS (22.9-36.5) 12/17/24 12:51 PTT Comment - 12/17/24 12:51 Sodium 146 mmol/L (136-145) H 12/18/24 05:07 Corrected Sodium TNP 12/18/24 05:07 Potassium 3.7 mmol/L (3.5-5.1) 12/18/24 05:07 Chloride 110 mmol/L (98-107) H 12/18/24 05:07 Carbon Dioxide 27.9 mmol/L (21-32) 12/18/24 05:07 BUN 16 mg/dL (7-18) 12/18/24 05:07 Creatinine 0.89 mg/dL (0.55-1.02) 12/18/24 05:07 Est GFR (MDRD) Af Amer > 60 (>60) 12/18/24 05:07 Est GFR (MDRD) Non-Af > 60 (>60) 12/18/24 05:07 Glucose 95 mg/dL (65-99) 12/18/24 05:07 Calcium 8.5 mg/dL (8.5-10.1) 12/18/24 05:07 Corrected Calcium 9.2 mg/dL (8.5-10.1) 12/18/24 05:07 Magnesium 2.2 mg/dL (2.0-2.9) 12/18/24 05:07 Total Bilirubin 0.50 mg/dL (0.2-1.0) 12/18/24 05:07 AST 22 Units/L (15-37) 12/18/24 05:07 ALT 12 Units/L (12-78) 12/18/24 05:07 Alkaline Phosphatase 74 Units/L (46-116) 12/18/24 05:07 Total Protein 6.2 g/dL (6.4-8.2) L 12/18/24 05:07 Albumin 3.1 g/dL (3.4-5.0) L 12/18/24 05:07 Globulin 3.1 g/dL (2.5-4.5) 12/18/24 05:07 Albumin/Globulin Ratio 1.0 Ratio (1.1-2.1) L 12/18/24 05:07 Specimen Type Clean catch urine 12/17/24 12:59 Urine Color [place] (YELLOW) 12/17/24 12:59 Urine Appearance Clear (CLEAR) 12/17/24 12:59 Urine pH 5.0 (5.0 - 8.0) 12/17/24 12:59 Ur Specific [place] 1.030 (1.000-1.030) 12/17/24 12:59 Urine Protein 2+ (NEGATIVE) 12/17/24 12:59 Urine Glucose (UA) Negative (NEGATIVE) 12/17/24 12:59 Urine Ketones 1+ (NEGATIVE) 12/17/24 12:59 Urine Blood 1+ (NEGATIVE) 12/17/24 12:59 Urine Nitrite Negative (NEGATIVE) 12/17/24 12:59 Urine Bilirubin 1+ (NEGATIVE) 12/17/24 12:59 Urine Urobilinogen 2+ (NORMAL) 12/17/24 12:59 Ur Leukocyte Esterase 1+ (NEGATIVE) 12/17/24 12:59 Urine RBC 3-5 /HPF (0-3) A 12/17/24 12:59 Urine WBC 3-5 /HPF (0-5) 12/17/24 12:59 Ur Squamous Epith Cells Few /HPF (NEGATIVE) 12/17/24 12:59 Amorphous Sediment 1+ /HPF (NEGATIVE) 12/17/24 12:59 Urine Bacteria Trace /HPF (NEGATIVE) 12/17/24 12:59 Hyaline Casts Few /LPF (NEGATIVE) 12/17/24 12:59 Urine Mucus Many /HPF (NEGATIVE) 12/17/24 12:59 Ur Culture Indicated? No/not indicated 12/17/24 12:59 Urine Opiates Screen Negative (NEG=<300) 12/17/24 12:59 Urine Methadone Screen Negative (NEG=<300) 12/17/24 12:59 Ur Barbiturates Screen Negative (NEG=<200) 12/17/24 12:59 Ur Phencyclidine Scrn Negative (NEG=<25) 12/17/24 12:59 Ur Amphetamines Screen Negative (NEG=<1000) 12/17/24 12:59 U Benzodiazepines Scrn Negative (NEG=<200) 12/17/24 12:59 Urine Cocaine Screen Negative (NEG=<300) 12/17/24 12:59 U Marijuana (THC) Screen Negative (NEG=<50) 12/17/24 12:59 Blood Type O POSITIVE 12/17/24 14:15 Antibody Screen Negative 12/17/24 14:15 Review of Systems Constitutional: No Symptoms Reported Eyes: No Symptoms Reported ENT: No Symptoms Reported Respiratory: No Symptoms Reported Cardiovascular: No Symptoms Reported Gastrointestinal: No Symptoms Reported Genitourinary: No Symptoms Reported Musculoskeletal: No Symptoms Reported Skin: No Symptoms Reported Neurological: No Symptoms Reported Physical Exam Vital Signs: Vital Signs Temperature 98.3 F Pulse Rate [Bilateral Radial] 60 Respiratory Rate 18 Blood Pressure [Right Arm] 151/73 O2 Sat by Pulse Oximetry 97 Oriented: Normal Respiratory: Clear Throughout Cardiovascular: Normal Auscultation: Bowel Sounds: Normal Palpation: Normal Tenderness: Normal Skin: Normal Musculoskeletal: Normal Psychiatric: Normal Mood Description: Calm Affect: Normal Speech Pattern: Clear and Appropriate Assessment/Plan (1) Acute CVA (cerebrovascular accident): Status: Acute (2) Anxiety: Status: Chronic (3) Chronic gastroesophageal reflux disease: Status: None (4) Fibromyalgia: Status: None (5) Benign hypertension: Status: None (6) Mixed hyperlipidemia: Status: None Review H&P Reviewed: Yes Patient was examined?: Yes
[2024-12-18] MEDS: MAALOX or MYLANTA PO PRN (19:25)
[2024-12-18] MEDS: CRESTOR TAB 10 MG PO SCH (21:44)
[2024-12-19 06:18] LABS: MEAN PLATELET VOLUME 9.4 fL (7.4-11.0); RED CELL DISTRIBUTION WIDTH 13.7 % (11.6-16.5)
[2024-12-19 06:33] LABS: COR CA(FOR HYPOALB) 9.2 mg/dL (8.5-10.1); CREATININE 1.15 mg/dL (0.55-1.02); eGFR NON BLACK RACES 49 (>60)
[2024-12-19] MEDS ORDERED: LEXAPRO ONE (08:56)
--- NOTE | 2024-12-19 10:56 | PCM.PROG ---
Progress Note Progress Note for Day of Date of Exam: 12/19/24 Subjective Subjective: Patient is a 74-year-old female admitted for acute CVA. This morning she is resting comfortably in bed. She reports still having some left hand tingling sensation however everything else she reports is back to her baseline. She has been ambulating around the room. Labs/imaging: WBC 9, hemoglobin 11.7, platelets 226, sodium 144, potassium 4.1, creatinine 1.15, glucose 105, neck CTA was negative for any significant stenosis. Will otherwise continue with physical therapy. Patient would like to go home with home health and home for PT. This will be arranged. She did have some bradycardia, morning Lopressor was held. Will decrease dose to half tablet. Continue to monitor. Otherwise continue current treatment plan. Continue closely monitor follow-up labs/imaging. Past Medical Family Social History Allergies: Allergies aspirin Allergy (Unknown, Verified 03/13/24 18:16) atorvastatin (Lipitor) Allergy (Unknown, Verified 12/06/22 10:56) Reason: Drug allergy Penicillins Allergy (Unknown, Verified 12/06/22 10:56) Sulfa (Sulfonamide Antibiotics) Allergy (Unknown, Verified 12/06/22 10:56) Itching; Rash Onset Date: 05/23/2016 tramadol Allergy (Unknown, Verified 12/06/22 10:56) Reason: Drug allergy; Comments: causes vomiting. NSAIDS (Non-Steroidal Anti-Inflamma Allergy (Verified 12/17/24 17:31) benzyl benzoate Allergy (Uncoded 12/17/24 17:31) beta-adrenergic blockers Allergy (Uncoded 12/17/24 17:31) celecoxib congeners Allergy (Uncoded 12/17/24 17:31) loop diuretics Allergy (Uncoded 12/17/24 17:31) polymyxins Allergy (Uncoded 12/17/24 17:31) Review of Systems ROS changes noted: see HPI Vital Signs and I&O's Vital Signs: Vital Signs Temperature 98.0 F Pulse Rate [Bilateral Radial] 50 Respiratory Rate 17 Blood Pressure [Right Arm] 99/54 O2 Sat by Pulse Oximetry 92 Intake and Output: Intake & Output 12/16/24 12/17/24 12/18/24 12/19/24 23:59 23:59 23:59 23:59 Intake Total 420 / 420 1140 / 1140 100 / 100 Balance 420 / 420 1140 / 1139 Physical Exam Oriented: Normal Respiratory: Normal Cardiovascular: Normal Auscultation: Bowel Sounds: Normal Tenderness: Normal Skin: Normal Musculoskeletal: Normal Psychiatric: Normal Mood Description: Calm Affect: Normal Speech Pattern: Clear and Appropriate Laboratory and Diagnostics 12/19/24 05:09 12/19/24 05:09 Labs: Laboratory WBC 9.0 X10^3/uL (3.6-10.0) 12/19/24 05:09 RBC 3.95 X10^6/uL (3.5-5.4) 12/19/24 05:09 Hgb 11.7 g/dL (12.0-16.0) L 12/19/24 05:09 Hct 33.4 % (36.0-47.0) L 12/19/24 05:09 MCV 84.6 fL (80.0-100.0) 12/19/24 05:09 MCH 29.6 pg (27.0-34.0) 12/19/24 05:09 MCHC 35.0 g/dL (33.0-35.0) 12/19/24 05:09 RDW 13.7 % (11.6-16.5) 12/19/24 05:09 Plt Count 226 X10^3/uL (150.0-450.0) 12/19/24 05:09 MPV 9.4 fL (7.4-11.0) 12/19/24 05:09 Neut % (Auto) 54.7 % (42.0-75.0) 12/19/24 05:09 Lymph % (Auto) 36.7 % (21.0-51.0) 12/19/24 05:09 [place] % (Auto) 6.7 % (0.0-13.0) 12/19/24 05:09 Eos % (Auto) 1.6 % (0.9-2.9) 12/19/24 05:09 Baso % (Auto) 0.3 % (0.2-1.0) 12/19/24 05:09 Neut # (Auto) 4.9 x10^3/uL (2.2-4.8) H 12/19/24 05:09 Lymph # (Auto) 3.3 X10^3/uL (1.3-2.9) H 12/19/24 05:09 [place] # (Auto) 0.6 x10^3/uL (0.3-0.8) 12/19/24 05:09 Eos # (Auto) 0.1 x10^3/uL (0.0-0.2) 12/19/24 05:09 Baso # (Auto) 0.0 X10^3/uL (0.0-0.1) 12/19/24 05:09 Absolute Nucleated RBC 0.1 /100WBC 12/19/24 05:09 PT 14.2 SECONDS (11.8-14.3) 12/17/24 12:51 INR Target Range - 12/17/24 12:51 INR 1.09 (0.8-1.3) 12/17/24 12:51 APTT 26.5 SECONDS (22.9-36.5) 12/17/24 12:51 PTT Comment - 12/17/24 12:51 Sodium 144 mmol/L (136-145) 12/19/24 05:09 Corrected Sodium TNP 12/19/24 05:09 Potassium 4.1 mmol/L (3.5-5.1) 12/19/24 05:09 Chloride 108 mmol/L (98-107) H 12/19/24 05:09 Carbon Dioxide 28.7 mmol/L (21-32) 12/19/24 05:09 BUN 23 mg/dL (7-18) H 12/19/24 05:09 Creatinine 1.15 mg/dL (0.55-1.02) H 12/19/24 05:09 Est GFR (MDRD) Af Amer 60 (>60) 12/19/24 05:09 Est GFR (MDRD) Non-Af 49 (>60) L 12/19/24 05:09 Glucose 105 mg/dL (65-99) H 12/19/24 05:09 Calcium 8.5 mg/dL (8.5-10.1) 12/19/24 05:09 Corrected Calcium 9.2 mg/dL (8.5-10.1) 12/19/24 05:09 Magnesium 2.2 mg/dL (2.0-2.9) 12/18/24 05:07 Total Bilirubin 0.20 mg/dL (0.2-1.0) 12/19/24 05:09 AST 20 Units/L (15-37) 12/19/24 05:09 ALT 15 Units/L (12-78) 12/19/24 05:09 Alkaline Phosphatase 82 Units/L (46-116) 12/19/24 05:09 Total Protein 6.3 g/dL (6.4-8.2) L 12/19/24 05:09 Albumin 3.1 g/dL (3.4-5.0) L 12/19/24 05:09 Globulin 3.2 g/dL (2.5-4.5) 12/19/24 05:09 Albumin/Globulin Ratio 1.0 Ratio (1.1-2.1) L 12/19/24 05:09 Specimen Type Clean catch urine 12/17/24 12:59 Urine Color [place] (YELLOW) 12/17/24 12:59 Urine Appearance Clear (CLEAR) 12/17/24 12:59 Urine pH 5.0 (5.0 - 8.0) 12/17/24 12:59 Ur Specific [place] 1.030 (1.000-1.030) 12/17/24 12:59 Urine Protein 2+ (NEGATIVE) 12/17/24 12:59 Urine Glucose (UA) Negative (NEGATIVE) 12/17/24 12:59 Urine Ketones 1+ (NEGATIVE) 12/17/24 12:59 Urine Blood 1+ (NEGATIVE) 12/17/24 12:59 Urine Nitrite Negative (NEGATIVE) 12/17/24 12:59 Urine Bilirubin 1+ (NEGATIVE) 12/17/24 12:59 Urine Urobilinogen 2+ (NORMAL) 12/17/24 12:59 Ur Leukocyte Esterase 1+ (NEGATIVE) 12/17/24 12:59 Urine RBC 3-5 /HPF (0-3) A 12/17/24 12:59 Urine WBC 3-5 /HPF (0-5) 12/17/24 12:59 Ur Squamous Epith Cells Few /HPF (NEGATIVE) 12/17/24 12:59 Amorphous Sediment 1+ /HPF (NEGATIVE) 12/17/24 12:59 Urine Bacteria Trace /HPF (NEGATIVE) 12/17/24 12:59 Hyaline Casts Few /LPF (NEGATIVE) 12/17/24 12:59 Urine Mucus Many /HPF (NEGATIVE) 12/17/24 12:59 Ur Culture Indicated? No/not indicated 12/17/24 12:59 Urine Opiates Screen Negative (NEG=<300) 12/17/24 12:59 Urine Methadone Screen Negative (NEG=<300) 12/17/24 12:59 Ur Barbiturates Screen Negative (NEG=<200) 12/17/24 12:59 Ur Phencyclidine Scrn Negative (NEG=<25) 12/17/24 12:59 Ur Amphetamines Screen Negative (NEG=<1000) 12/17/24 12:59 U Benzodiazepines Scrn Negative (NEG=<200) 12/17/24 12:59 Urine Cocaine Screen Negative (NEG=<300) 12/17/24 12:59 U Marijuana (THC) Screen Negative (NEG=<50) 12/17/24 12:59 Blood Type O POSITIVE 12/17/24 14:15 Antibody Screen Negative 12/17/24 14:15 Plan (1) Acute CVA (cerebrovascular accident): Status: Acute (2) Anxiety: Status: Chronic (3) Chronic gastroesophageal reflux disease: Status: None (4) Fibromyalgia: Status: None (5) Benign hypertension: Status: None (6) Mixed hyperlipidemia: Status: None
[2024-12-19] MEDS: LOPRESSOR TAB 25 MG PO SCH (21:57)
[2024-12-20 04:24] VITALS: RESP 17; O2SAT 96
[2024-12-20 06:16] LABS: MEAN PLATELET VOLUME 9.4 fL (7.4-11.0); RED CELL DISTRIBUTION WIDTH 13.3 % (11.6-16.5)
[2024-12-20 06:18] LABS: COR CA(FOR HYPOALB) 9.2 mg/dL (8.5-10.1); CREATININE 1.08 mg/dL (0.55-1.02); eGFR NON BLACK RACES 53 (>60)
[2024-12-20] MEDS ORDERED: LEXAPRO ONE (08:19)
[2024-12-20 09:03] VITALS: BP 134/64; PULSE 56; TEMP 98.4
--- NOTE | 2024-12-24 16:00 | W.DIS.FURT ---
Summary of Discharge Discharge Summary of Date Date of Exam: 12/20/24 Admission Date Date of Admission: 12/17/24 Admission Diagnosis Patient Problems (Updated 12/18/24 @ 12:53 by Janice Mcarthur MD) Focal infarction of brain (Acute) I63.9 Hospital Course: Patient is a 74-year-old female admitted for acute CVA. MRI revealing acute nonhemorrhagic infarct within the right frontoparietal region. Neck CTA was negative for any significant stenosis. Patient was monitored. Her symptoms significantly improved. She did continue to have some residual left hand tingling sensation, however everything else she reports is back to her baseline. Patient has had some bradycardia, discontinued her metoprolol and instructed for her to follow-up with her PCP before restarting medication. She was discharged in stable condition. Home PT. Instructed to follow-up with her PCP in 1 week. She will continue with Plavix and statin treatment. Vital Signs: Vital Signs (72 hours) 12/17/24 11:46 12/17/24 12:30 12/17/24 14:56 Temperature 98.1 F Pulse Rate 62 Pulse Rate [Bilateral Radial] Respiratory Rate 20 20 Blood Pressure 194/77 156/80 Blood Pressure [Right Arm] O2 Sat by Pulse Oximetry 98 Oxygen Delivery Method Room Air 12/17/24 15:00 12/17/24 15:00 12/17/24 16:30 Temperature 98.4 F Pulse Rate Pulse Rate [Bilateral Radial] 52 L Respiratory Rate 22 Blood Pressure Blood Pressure [Right Arm] 202/95 195/89 O2 Sat by Pulse Oximetry 98 Oxygen Delivery Method Room Air Room Air 12/17/24 17:50 12/17/24 19:00 12/17/24 20:00 Temperature 98.1 F Pulse Rate Pulse Rate [Bilateral Radial] 60 Respiratory Rate 18 Blood Pressure Blood Pressure [Right Arm] 166/88 188/92 O2 Sat by Pulse Oximetry 97 Oxygen Delivery Method Room Air Room Air 12/17/24 22:40 12/18/24 00:00 12/18/24 04:00 Temperature 99.1 F 98.1 F Pulse Rate Pulse Rate [Bilateral Radial] 51 L 50 L Respiratory Rate 18 17 Blood Pressure Blood Pressure [Right Arm] 105/60 104/56 137/66 O2 Sat by Pulse Oximetry 95 97 Oxygen Delivery Method Room Air Room Air 12/18/24 07:00 12/18/24 08:00 12/18/24 12:00 Temperature 98.3 F 98.1 F Pulse Rate Pulse Rate [Bilateral Radial] 60 54 L Respiratory Rate 18 19 Blood Pressure Blood Pressure [Right Arm] 151/73 159/76 O2 Sat by Pulse Oximetry 97 97 Oxygen Delivery Method Room Air Room Air Room Air 12/18/24 16:00 12/18/24 19:00 12/18/24 20:00 Temperature 97.9 F 97.6 F Pulse Rate Pulse Rate [Bilateral Radial] 60 61 Respiratory Rate 18 18 Blood Pressure Blood Pressure [Right Arm] 144/68 147/87 O2 Sat by Pulse Oximetry 98 98 Oxygen Delivery Method Room Air Room Air Room Air 12/19/24 00:00 12/19/24 03:54 12/19/24 07:00 Temperature 98.4 F 98.0 F Pulse Rate Pulse Rate [Bilateral Radial] 53 L 50 L Respiratory Rate 17 17 Blood Pressure Blood Pressure [Right Arm] 81/49 99/54 O2 Sat by Pulse Oximetry 94 L 92 L Oxygen Delivery Method Room Air Room Air Room Air 12/19/24 08:00 12/19/24 12:00 12/19/24 12:54 Temperature 98.4 F 98.9 F Pulse Rate Pulse Rate [Bilateral Radial] 50 L 51 L Respiratory Rate 16 20 Blood Pressure Blood Pressure [Right Arm] 158/67 167/77 148/66 O2 Sat by Pulse Oximetry 98 95 Oxygen Delivery Method Room Air Room Air 12/19/24 16:00 12/19/24 19:00 12/19/24 20:00 Temperature 98.2 F 98.0 F Pulse Rate Pulse Rate [Bilateral Radial] 56 L 61 Respiratory Rate 18 18 Blood Pressure Blood Pressure [Right Arm] 117/64 158/68 O2 Sat by Pulse Oximetry 96 94 L Oxygen Delivery Method Room Air Room Air Room Air 12/20/24 00:00 12/20/24 02:49 12/20/24 04:00 Temperature 97.7 F 98.7 F Pulse Rate Pulse Rate [Bilateral Radial] 49 L 39 L 41 L Respiratory Rate 18 17 Blood Pressure Blood Pressure [Right Arm] 89/55 145/62 O2 Sat by Pulse Oximetry 91 L 96 Oxygen Delivery Method Room Air Room Air 12/20/24 07:00 12/20/24 08:00 Temperature 98.4 F Pulse Rate Pulse Rate [Bilateral Radial] 56 L Respiratory Rate 17 Blood Pressure Blood Pressure [Right Arm] 134/64 O2 Sat by Pulse Oximetry 96 Oxygen Delivery Method Room Air Room Air Labs: Laboratory Last Values WBC 7.8 X10^3/uL (3.6-10.0) 12/20/24 05:18 RBC 4.10 X10^6/uL (3.5-5.4) 12/20/24 05:18 Hgb 12.2 g/dL (12.0-16.0) 12/20/24 05:18 Hct 34.3 % (36.0-47.0) L 12/20/24 05:18 MCV 83.6 fL (80.0-100.0) 12/20/24 05:18 MCH 29.7 pg (27.0-34.0) 12/20/24 05:18 MCHC 35.6 g/dL (33.0-35.0) H 12/20/24 05:18 RDW 13.3 % (11.6-16.5) 12/20/24 05:18 Plt Count 224 X10^3/uL (150.0-450.0) 12/20/24 05:18 MPV 9.4 fL (7.4-11.0) 12/20/24 05:18 Neut % (Auto) 48.0 % (42.0-75.0) 12/20/24 05:18 Lymph % (Auto) 43.6 % (21.0-51.0) 12/20/24 05:18 [place] % (Auto) 6.3 % (0.0-13.0) 12/20/24 05:18 Eos % (Auto) 1.7 % (0.9-2.9) 12/20/24 05:18 Baso % (Auto) 0.4 % (0.2-1.0) 12/20/24 05:18 Neut # (Auto) 3.8 x10^3/uL (2.2-4.8) 12/20/24 05:18 Lymph # (Auto) 3.4 X10^3/uL (1.3-2.9) H 12/20/24 05:18 [place] # (Auto) 0.5 x10^3/uL (0.3-0.8) 12/20/24 05:18 Eos # (Auto) 0.1 x10^3/uL (0.0-0.2) 12/20/24 05:18 Baso # (Auto) 0.0 X10^3/uL (0.0-0.1) 12/20/24 05:18 Absolute Nucleated RBC 0.1 /100WBC 12/20/24 05:18 PT 14.2 SECONDS (11.8-14.3) 12/17/24 12:51 INR Target Range - 12/17/24 12:51 INR 1.09 (0.8-1.3) 12/17/24 12:51 APTT 26.5 SECONDS (22.9-36.5) 12/17/24 12:51 PTT Comment - 12/17/24 12:51 Sodium 143 mmol/L (136-145) 12/20/24 05:18 Corrected Sodium TNP 12/20/24 05:18 Potassium 4.3 mmol/L (3.5-5.1) 12/20/24 05:18 Chloride 106 mmol/L (98-107) 12/20/24 05:18 Carbon Dioxide 29.7 mmol/L (21-32) 12/20/24 05:18 BUN 19 mg/dL (7-18) H 12/20/24 05:18 Creatinine 1.08 mg/dL (0.55-1.02) H 12/20/24 05:18 Est GFR (MDRD) Af Amer > 60 (>60) 12/20/24 05:18 Est GFR (MDRD) Non-Af 53 (>60) L 12/20/24 05:18 Glucose 105 mg/dL (65-99) H 12/20/24 05:18 Calcium 8.5 mg/dL (8.5-10.1) 12/20/24 05:18 Corrected Calcium 9.2 mg/dL (8.5-10.1) 12/20/24 05:18 Magnesium 2.2 mg/dL (2.0-2.9) 12/18/24 05:07 Total Bilirubin 0.20 mg/dL (0.2-1.0) 12/20/24 05:18 AST 18 Units/L (15-37) 12/20/24 05:18 ALT 11 Units/L (12-78) L 12/20/24 05:18 Alkaline Phosphatase 84 Units/L (46-116) 12/20/24 05:18 Total Protein 6.3 g/dL (6.4-8.2) L 12/20/24 05:18 Albumin 3.1 g/dL (3.4-5.0) L 12/20/24 05:18 Globulin 3.2 g/dL (2.5-4.5) 12/20/24 05:18 Albumin/Globulin Ratio 1.0 Ratio (1.1-2.1) L 12/20/24 05:18 Specimen Type Clean catch urine 12/17/24 12:59 Urine Color [place] (YELLOW) 12/17/24 12:59 Urine Appearance Clear (CLEAR) 12/17/24 12:59 Urine pH 5.0 (5.0 - 8.0) 12/17/24 12:59 Ur Specific [place] 1.030 (1.000-1.030) 12/17/24 12:59 Urine Protein 2+ (NEGATIVE) 12/17/24 12:59 Urine Glucose (UA) Negative (NEGATIVE) 12/17/24 12:59 Urine Ketones 1+ (NEGATIVE) 12/17/24 12:59 Urine Blood 1+ (NEGATIVE) 12/17/24 12:59 Urine Nitrite Negative (NEGATIVE) 12/17/24 12:59 Urine Bilirubin 1+ (NEGATIVE) 12/17/24 12:59 Urine Urobilinogen 2+ (NORMAL) 12/17/24 12:59 Ur Leukocyte Esterase 1+ (NEGATIVE) 12/17/24 12:59 Urine RBC 3-5 /HPF (0-3) A 12/17/24 12:59 Urine WBC 3-5 /HPF (0-5) 12/17/24 12:59 Ur Squamous Epith Cells Few /HPF (NEGATIVE) 12/17/24 12:59 Amorphous Sediment 1+ /HPF (NEGATIVE) 12/17/24 12:59 Urine Bacteria Trace /HPF (NEGATIVE) 12/17/24 12:59 Hyaline Casts Few /LPF (NEGATIVE) 12/17/24 12:59 Urine Mucus Many /HPF (NEGATIVE) 12/17/24 12:59 Ur Culture Indicated? No/not indicated 12/17/24 12:59 Urine Opiates Screen Negative (NEG=<300) 12/17/24 12:59 Urine Methadone Screen Negative (NEG=<300) 12/17/24 12:59 Ur Barbiturates Screen Negative (NEG=<200) 12/17/24 12:59 Ur Phencyclidine Scrn Negative (NEG=<25) 12/17/24 12:59 Ur Amphetamines Screen Negative (NEG=<1000) 12/17/24 12:59 U Benzodiazepines Scrn Negative (NEG=<200) 12/17/24 12:59 Urine Cocaine Screen Negative (NEG=<300) 12/17/24 12:59 U Marijuana (THC) Screen Negative (NEG=<50) 12/17/24 12:59 Blood Type O POSITIVE 12/17/24 14:15 Antibody Screen Negative 12/17/24 14:15 Reason For Visit: INFARCT Discharge Date Discharge Date: 12/20/24 Discharge Diagnosis All Active Problems (Updated 12/18/24 @ 12:53 by Janice Mcarthur MD) Acute CVA (cerebrovascular accident) (Acute) Focal infarction of brain (Acute) Disturbance of sleep pattern associated with pain (Acute) Obstructive sleep apnea syndrome (Acute) Bradycardia with 51-60 beats per minute (Acute) Neck and shoulder pain (Acute) History of recent fall (Acute) Otitis externa of both ears (Acute) TMJ inflammation (Acute) Referred otalgia of left ear (Acute) UTI (urinary tract infection), bacterial (Acute) Angular cheilitis (Acute) Angular stomatitis (Acute) Cystitis with hematuria (Acute) Dysuria-frequency syndrome (Acute) UTI symptoms (Acute) Anxiety (Chronic) Encounter for mammogram to establish baseline mammogram (Chronic) Hypertension with goal blood pressure less than 130/80 (Chronic) Plan of Treatment: Continue with present treatment and follow up plan. Pt is to keep follow up appointment as instructed and take medications as ordered. Discharge Medications Discharge Medications: aspirin Allergy (Unknown, Verified 03/13/24 18:16) atorvastatin (Lipitor) Allergy (Unknown, Verified 12/06/22 10:56) Penicillins Allergy (Unknown, Verified 12/06/22 10:56) Sulfa (Sulfonamide Antibiotics) Allergy (Unknown, Verified 12/06/22 10:56) Itching; Rash tramadol Allergy (Unknown, Verified 12/06/22 10:56) NSAIDS (Non-Steroidal Anti-Inflamma Allergy (Verified 12/17/24 17:31) benzyl benzoate Allergy (Uncoded 12/17/24 17:31) beta-adrenergic blockers Allergy (Uncoded 12/17/24 17:31) celecoxib congeners Allergy (Uncoded 12/17/24 17:31) loop diuretics Allergy (Uncoded 12/17/24 17:31) polymyxins Allergy (Uncoded 12/17/24 17:31) CONTINUE taking the following medications tizanidine 4 mg tablet 4 mg PO BID PRN muscle spasm 12/17/24 [History] New Prescriptions clopidogrel 75 mg tablet 75 mg PO DAILY 30 days #30 tabs 12/20/24 [Rx] clopidogrel 75 mg tablet (Plavix) 75 mg PO QDAY #30 tabs 12/20/24 [Rx] losartan 50 mg tablet 100 mg (2 x 50 mg) PO QDAY 30 days #60 tabs 12/20/24 [Rx] rosuvastatin 20 mg sprinkle capsule 20 mg PO HS 30 days #30 caps 12/20/24 [Rx] verapamil 240 mg tablet,extended release 240 mg PO HS 30 days #30 tabs 12/20/24 [Rx] Discharge Disposition Assessment: No distress noted. Discharge Plan Discharge Plan Hospital Course: Patient is a 74-year-old female admitted for acute CVA. MRI revealing acute nonhemorrhagic infarct within the right frontoparietal region. Neck CTA was negative for any significant stenosis. Patient was monitored. Her symptoms significantly improved. She did continue to have some residual left hand tingling sensation, however everything else she reports is back to her baseline. Patient has had some bradycardia, discontinued her metoprolol and instructed for her to follow-up with her PCP before restarting medication. She was discharged in stable condition. Home PT. Instructed to follow-up with her PCP in 1 week. She will continue with Plavix and statin treatment. Patient Disposition: HOME HEALTH SERVICE Condition: Stable Health Concerns: Post Hospitalization: new medications and changes needed to prevent readmission or further decline. Pt educated and given instructions on all concerns. Care Plan Goals: Problem: Pain/Alteration in Comfort Goal: Improve/ Resolve Pain; Achieve Pain Tolerance Instructions: Take pain medications as prescribed. Contact your primary care provider if your pain is unrelieved or worsens. Follow up with primary care provider as directed. Plan of Treatment: Continue with present treatment and follow up plan. Pt is to keep follow up appointment as instructed and take medications as ordered. Assessment: No distress noted. Prescriptions: New clopidogrel [Plavix] 75 mg Tablet 75 mg PO QDAY Qty: 30 0RF rosuvastatin 20 mg capsule, sprinkle 20 mg PO HS 30 Days Qty: 30 0RF losartan 50 mg Tablet 100 mg PO QDAY 30 Days Qty: 60 0RF clopidogrel 75 mg Tablet 75 mg PO DAILY 30 Days Qty: 30 0RF verapamil 240 mg Tablet Extended Release 240 mg PO HS 30 Days Qty: 30 0RF Continued chlorthalidone 25 mg tablet 25 mg PO QDAY 90 Days Qty: 90 0RF rosuvastatin 10 mg tablet 10 mg PO QHS MDD 1 90 Days Qty: 90 0RF escitalopram oxalate 20 mg tablet 20 mg PO QDAY MDD 1 90 Days Qty: 90 0RF omeprazole 40 mg capsule,delayed release(DR/EC) 40 mg PO QDAY MDD 1 90 Days Qty: 90 0RF potassium chloride 20 mEq tablet,ER particles/crystals 20 meq PO QDAY MDD 1 90 Days Qty: 90 0RF verapamil 300 mg capsule, [address] 300 mg PO QHS MDD 1 30 Days Qty: 30 2RF Rx Instructions: remind patient to d/c amlodipine tizanidine 4 mg tablet 4 mg PO BID PRN (Reason: muscle spasm) Discontinued losartan 100 mg tablet 100 mg PO QDAY Qty: 90 0RF metoprolol tartrate 50 mg tablet 50 mg PO Q12H MDD 2 90 Days Qty: 180 0RF Follow ups/Referrals Follow ups/Referrals: JADEN CLINE HEALT [STAFF PHYSICIAN, Unknown] Referral Note: Referral sent 12/18/24. Nurse, PT/OT requested. BERTIN SMALL FNP [Primary Care Provider, MEDICAL] - 12/26/24 1:00 pm Instructions Instructions: Hospital Discharge After a Stroke, Stroke Prevention, [id number], Driving After a Stroke Stand Alone Forms: Find Help Web Site, [facility], Post Hospital Follow Up Care Print Language: KINYARWANDA
== END 2024-12-20 12:10 | disposition home health service (06) ==
LOC: MED/SURG 11:31 → ER 11:31 → MED/SURG 14:56
PROVIDERS: ADMIT Internal Medicine; ATTEND Internal Medicine
DX: I10 Essential (primary) hypertension; M79.7 Fibromyalgia; R94.4 Abnormal results of kidney function studies; E78.2 Mixed hyperlipidemia; F41.8 Other specified anxiety disorders; R73.09 Other abnormal glucose; R20.2 Paresthesia of skin; E87.0 Hyperosmolality and hypernatremia; R41.82 Altered mental status, unspecified; Z79.899 Other long term (current) drug therapy; I63.89 Other cerebral infarction; R00.1 Bradycardia, unspecified; K21.9 Gastro-esophageal reflux disease without esophagitis; R26.89 Other abnormalities of gait and mobility

== ENCOUNTER 2025-02-15 14:23 | Observation (INO) ==
[2025-02-15 14:41] VITALS: BMI 22.3
--- NOTE | 2025-02-15 15:27 | DR.GENAD ---
HPI Time Seen Time Seen by Provider: 02/15/25 15:25 PCP Primary Care Physician: BAUDILIO Balbuena HPI Comment HPI Comment: Patient is a 72-year-old female with history of A-fib on Eliquis and rate and rhythm control, CVA with residual left-sided paresthesia, and hypertension who presents to the ED with complaint of generalized weakness. Patient states that she was leaving her house this afternoon where her legs felt extremely weak and gave way she. She fell to the right side. She did not hit her head. No loss of consciousness. Denies any acute pain in the right shoulder or hip. Patient states that she just feels extremely weak. She denies any fevers, chills, cough, cold, congestion, NVD, abdominal pain, chest pain, shortness of breath Complaint/Symptoms Chief Complaint:: Pt reports that over the past two months since a recent stroke on 12/18/24 she has had constant generalized weakness. Pt states that over the past two days she feels like her legs are so weak that she can't stand without assistance. Pt did have a fall today while walking down her wheelchair ramp. Denies any injury from the fall. Pt states, "my legs just give out." COVID-19 Coronavirus risk:travel/contact w/high risk person: No Has patient experienced Coronavirus symptoms: No Source History Provided: Patient Mode of Arrival Mode of Arrival: Wheelchair Timing Onset of Chief Complaint: 02/13/25 PMH PMH Past Medical History: Yes Past Medical History: Anxiety, CVA, Depression, Dyslipidemia, GERD, Hypertension and Sleep Apnea Past Medical History Comment: fibromyalgia, IBS Past Surgical History: Yes Surgical History: Hysterectomy Family History History of Family Medical Conditions: Yes Family Medical History: Diabetes Mellitus, Cancer, [place], Coronary Artery Disease, Heart Failure and Hypertension Social History Does patient currently use any type of tobacco product: No Have you used tobacco products in the last 12 months: No Type of Tobacco Use: None Does any household member use tobacco: No Alcohol Use: None Do you use any recreational Drugs:: No Lives With: Family Lives Where: Home Travel Risk Coronavirus risk:travel/contact w/high risk person: No Has patient experienced Coronavirus symptoms: No Infectious screening In the last 2 months have you had wt loss of >10#?: NO Have you had fever, night sweats or hemotysis?: No Have you traveled outside the country in the last 6 months?: No Isolation: Standard ROS Review of Systems All Other Systems: Reviewed and Negative PE Vital Signs Vitals: Vital Signs Pulse Rate 67 Pulse Rate 68 Pulse Rate 65 Pulse Rate 64 Pulse Rate 64 Pulse Rate 65 Pulse Rate 66 Pulse Rate 61 Pulse Rate 61 Pulse Rate 62 Pulse Rate 65 Pulse Rate 70 Pulse Rate 70 Pulse Rate 74 Respiratory Rate 23 Respiratory Rate 22 Respiratory Rate 29 Respiratory Rate 25 Respiratory Rate 23 Respiratory Rate 22 Respiratory Rate 23 Respiratory Rate 27 Respiratory Rate 21 Respiratory Rate 23 Respiratory Rate 22 Respiratory Rate 27 Respiratory Rate 18 Respiratory Rate 69 Blood Pressure 215/92 Blood Pressure 213/86 Blood Pressure 209/91 Blood Pressure 211/106 Blood Pressure 206/87 Blood Pressure 200/84 O2 Sat by Pulse Oximetry 96 O2 Sat by Pulse Oximetry 93 O2 Sat by Pulse Oximetry 96 Other Exam Other Exam: GEN: Lying comfortably on exam bed in NAD EYES: EOMI, PERRLA HEART: RRR LUNGS: CTABL ABD: Soft, non tender, non distended, BS normal MSK: Full range of motion of bilateral upper and lower extremity NEURO: Alert and oriented x 3, cranial nerves II through XII grossly intact, strength in the bilateral upper and lower extremities 5/5 COURSE Treatment Treatment: Ordered a CBC, CMP, UA, respiratory panel, and EKG to evaluate. ROR Labs Reviewed 02/15/25 14:30 02/15/25 14:30 Laboratory: WBC 18.6 X10^3/uL (3.6-10.0) H 02/15/25 14:30 RBC 4.53 X10^6/uL (3.5-5.4) 02/15/25 14:30 Hgb 13.1 g/dL (12.0-16.0) 02/15/25 14:30 Hct 38.5 % (36.0-47.0) 02/15/25 14:30 MCV 85.1 fL (80.0-100.0) 02/15/25 14:30 MCH 28.8 pg (27.0-34.0) 02/15/25 14:30 MCHC 33.9 g/dL (33.0-35.0) 02/15/25 14:30 RDW 14.4 % (11.6-16.5) 02/15/25 14:30 Plt Count 284 X10^3/uL (150.0-450.0) 02/15/25 14:30 MPV 10.4 fL (7.4-11.0) 02/15/25 14:30 Neut % (Auto) 83.2 % (42.0-75.0) H 02/15/25 14:30 Lymph % (Auto) 11.2 % (21.0-51.0) L 02/15/25 14:30 [place] % (Auto) 5.5 % (0.0-13.0) 02/15/25 14:30 Eos % (Auto) 0.0 % (0.9-2.9) L 02/15/25 14:30 Baso % (Auto) 0.1 % (0.2-1.0) L 02/15/25 14:30 Neut # (Auto) 15.5 x10^3/uL (2.2-4.8) H 02/15/25 14:30 Lymph # (Auto) 2.1 X10^3/uL (1.3-2.9) 02/15/25 14:30 [place] # (Auto) 1.0 x10^3/uL (0.3-0.8) H 02/15/25 14:30 Eos # (Auto) 0.0 x10^3/uL (0.0-0.2) 02/15/25 14:30 Baso # (Auto) 0.0 X10^3/uL (0.0-0.1) 02/15/25 14:30 Absolute Nucleated RBC 0.0 /100WBC 02/15/25 14:30 Sodium 139 mmol/L (136-145) 02/15/25 14:30 Corrected Sodium 140 mmol/L (136-145) 02/15/25 14:30 Potassium 3.0 mmol/L (3.5-5.1) L 02/15/25 14:30 Chloride 98 mmol/L (98-107) 02/15/25 14:30 Carbon Dioxide 30.9 mmol/L (21-32) 02/15/25 14:30 BUN 28 mg/dL (7-18) H 02/15/25 14:30 Creatinine 3.68 mg/dL (0.55-1.02) H 02/15/25 14:30 Est GFR (MDRD) Af Amer 16 (>60) L 02/15/25 14:30 Est GFR (MDRD) Non-Af 13 (>60) L 02/15/25 14:30 Glucose 162 mg/dL (65-99) H 02/15/25 14:30 Calcium 9.1 mg/dL (8.5-10.1) 02/15/25 14:30 Corrected Calcium TNP 02/15/25 14:30 Total Bilirubin 0.80 mg/dL (0.2-1.0) 02/15/25 14:30 AST 308 Units/L (15-37) H 02/15/25 14:30 ALT 71 Units/L (12-78) 02/15/25 14:30 Alkaline Phosphatase 86 Units/L (46-116) 02/15/25 14:30 Total Protein 7.2 g/dL (6.4-8.2) 02/15/25 14:30 Albumin 3.5 g/dL (3.4-5.0) 02/15/25 14:30 Globulin 3.7 g/dL (2.5-4.5) 02/15/25 14:30 Albumin/Globulin Ratio 0.9 Ratio (1.1-2.1) L 02/15/25 14:30 Specimen Type Catherized urine 02/15/25 16:02 Urine Color Yellow (YELLOW) 02/15/25 16:02 Urine Appearance Hazy (CLEAR) 02/15/25 16:02 Urine pH 5.0 (5.0 - 8.0) 02/15/25 16:02 Ur Specific [place] 1.030 (1.000-1.030) 02/15/25 16:02 Urine Protein 3+ (NEGATIVE) 02/15/25 16:02 Urine Glucose (UA) Negative (NEGATIVE) 02/15/25 16: Urine Ketones Negative (NEGATIVE) 02/15/25 16: Urine Blood 5+ (NEGATIVE) 02/15/25 16: Urine Nitrite Negative (NEGATIVE) 02/15/25 16:02 Urine Bilirubin 1+ (NEGATIVE) 02/15/25 16: Urine Urobilinogen 1+ (NORMAL) 02/15/25 16: Ur Leukocyte Esterase Negative (NEGATIVE) 02/15/25 16: Urine RBC 0-2 /HPF (0-3) 02/15/25 16:02 Urine WBC 3-5 /HPF (0-5) 02/15/25 16:02 Ur Squamous Epith Cells Rare /HPF (NEGATIVE) 02/15/25 16:02 Ur Renal Epithelial Cell Few /HPF (NEGATIVE) 02/15/25 16:02 Amorphous Sediment 3+ /HPF (NEGATIVE) 02/15/25 16:02 Urine Bacteria Trace /HPF (NEGATIVE) 02/15/25 16:02 Granular Casts Many /LPF (NEGATIVE) 02/15/25 16:02 Ur Culture Indicated? No/not indicated 02/15/25 16:02 SARS-CoV-2 (PCR) Negative (NEGATIVE) 02/15/25 15:28 Influenza Type A (PCR) Negative (NEGATIVE) 02/15/25 15:28 Influenza Type B (PCR) Negative (NEGATIVE) 02/15/25 15:28 RSV (PCR) Negative (NEGATIVE) 02/15/25 15:28 S. pyogenes (TEM-PCR) Not detected (NOT DETECT) 02/15/25 15:28 XRAY X-ray Results: Name: FREDERICK GEORGE : 1950 Sex: F Location: ER Order Number(s): [id number] Procedure(s):CHEST, 1 VIEW X-RAY Ordering Physician: Rahul Frankel Primary Care: Sade Acosta Service Date: 02/15/25 Service Time: 1619 EXAM: CHEST, 1 VIEW HISTORY: weakness,cough; Pt reports that over the past two months since a recent stroke on 12/18/24 she has had constant generalized weakness. Pt states that over the past two days she feels like her legs are so weak that she can't stand without assistance. Pt did have a fall today while walking down her wheelchair ramp. Denies any injury from the fall. Pt states, "my legs just give out." COMPARISON: None available. FINDINGS: The trachea is midline. The cardiac silhouette is unremarkable. COPD the lungs are clear without focal infiltrate or effusion. The bony thorax is unremarkable. IMPRESSION: COPD No acute cardiopulmonary disease. THIS IS AN ELECTRONICALLY VERIFIED FINAL REPORT 02/15/2025 5:32 PM - Electronically signed by Mariano Meraz MD Report Electronically signed: 02/15/25 [id number] CC: Rahul Frankel Opioid Opioid Risk Tool Age (Aly box if 16-45): No History of Preadolescent Sexual Abuse: No Total: 0 Total Score Risk Category: Low Risk Copyright: Galile[employer] ROWLAND predicting aberrant behaviors Discharge Plan Diagnosis Discharge Problem: Generalized weakness, Sepsis, NAVA (acute kidney injury) Discharge Plan Patient Disposition: ADMITTED INPATIENT Condition: Stable Discharge Comment: admitted upstairs Provider Note Additional Notes Patient is a 72-year-old female with history of A-fib on Eliquis and rate and rhythm control, CVA with residual left-sided paresthesia, and hypertension who presents to the ED with complaint of generalized weakness. In ED patient was found to be tachypneic and hypertensive.Physical exam was unremarkable. Basic blood work revealed leukocytosis and NAVA. Chest x-ray reviewed by me and Did not reveal any pulmonary infiltrates or consolidations. Official read said no acute cardiopulmonary process. Urinalysis was negative for UTI. Patient does meet SIRS criteria Due to unknown etiology. Due to her symptoms of generalized weakness in setting of positive SIRS criteria and leukocytosis hospitalist was called for Admission for further workup. Dr. Raines agreed to accept the patient. She was discharged to the floor in stable condition.
[2025-02-15 15:30] LABS: RED CELL DISTRIBUTION WIDTH 14.4 % (11.6-16.5)
[2025-02-15 15:38] LABS: MEAN PLATELET VOLUME 10.4 fL (7.4-11.0)
[2025-02-15 15:39] LABS: COR NA(FOR HYPERGLY) 140 mmol/L (136-145); CREATININE 3.68 mg/dL (0.55-1.02); eGFR NON BLACK RACES 13 (>60)
--- NOTE | 2025-02-15 16:08 | EKG ---
Test Reason : "weakness" Blood Pressure : */* mmHG Vent. Rate : 63 BPM Atrial Rate : 63 BPM P-R Int : 170 ms QRS Dur : 90 ms QT Int : 608 ms P-R-T Axes : 59 47 35 degrees QTc Int : 622 ms Normal sinus rhythm Abnormal ECG No previous ECGs available Confirmed by Edgar Floyd MD ([id number]) on 02/16/2025 6:40:59 AM Referred By: Confirmed By: Edgar Floyd MD
[2025-02-15] MEDS: NS 500 ML IV 500 ML IV ONE (16:26)
[2025-02-15 16:34] LABS: BLOOD/HEMOGLOBIN,URINE 5+ (NEGATIVE); LEUKOCYTE ESTERASE ,URINE NEGATIVE (NEGATIVE); NITRITES,URINE NEGATIVE (NEGATIVE)
[2025-02-15 16:43] LABS: APPEARANCE,URINE HAZY (CLEAR)
[2025-02-15 16:45] LABS: SQUAMOUS EPITHELIAL CELL,UR RARE /HPF (NEGATIVE)
--- NOTE | 2025-02-15 17:35 | RAD ---
EXAM: CHEST, 1 VIEW HISTORY: weakness,cough; Pt reports that over the past two months since a recent stroke on 12/18/24 she has had constant generalized weakness. Pt states that over the past two days she feels like her legs are so weak that she can't stand without assistance. Pt did have a fall today while walking down her wheelchair ramp. Denies any injury from the fall. Pt states, "my legs just give out." COMPARISON: None available. FINDINGS: The trachea is midline. The cardiac silhouette is unremarkable. COPD the lungs are clear without focal infiltrate or effusion. The bony thorax is unremarkable. IMPRESSION: COPD No acute cardiopulmonary disease. THIS IS AN ELECTRONICALLY VERIFIED FINAL REPORT 02/15/2025 5:32 PM - Electronically signed by Mariano Meraz MD
[2025-02-15] MEDS: NS 1,000 ML IV 1,000 ML IV SCH ×2 (17:44→21:12)
[2025-02-15] MEDS: ROCEPHIN VIAL 1 GRAM IVP ONE (17:44)
[2025-02-15] MEDS: CATAPRES TAB 0.1 MG PO ONE (21:26)
[2025-02-16 05:08] LABS: MEAN PLATELET VOLUME 10.3 fL (7.4-11.0); RED CELL DISTRIBUTION WIDTH 14.2 % (11.6-16.5)
[2025-02-16 05:19] LABS: COR CA(FOR HYPOALB) 9.1 mg/dL (8.5-10.1); CREATININE 2.24 mg/dL (0.55-1.02); eGFR NON BLACK RACES 23 (>60)
[2025-02-16] MEDS ORDERED: CONSULT PHARMACY - POTASSIUM & MAGNESIUM XX SCH (06:00)
--- NOTE | 2025-02-16 10:03 | CT ---
EXAM: CT ABDOMEN AND PELVIS WITHOUT CONTRAST HISTORY: Elevated liver enzymes, back pain; COMPARISON: None. TECHNIQUE: Axial CT images were obtained through the abdomen and pelvis without contrast. Coronal and sagittal reformatted images were included. All CT scans at this facility use dose modulation, iterative reconstruction, and/or weight based dosing when appropriate to reduce radiation dose to as low as reasonably achievable. FINDINGS: Please note that without the use of intravenous contrast, evaluation of organ parenchyma is limited. Clear lung bases. Unenhanced liver, gallbladder, spleen, pancreas, adrenals, and kidneys are unremarkable. No biliary dilatation. Mild aortoiliac atherosclerotic calcifications without aneurysm. No lymphadenopathy. No abnormally distended or focally thickened bowel loops. Normal right lower quadrant appendix. Moderate colonic stool burden. Mild scattered colonic diverticula without surrounding inflammation. Unremarkable urinary bladder. Absent uterus. No free pelvic fluid. No acute osseous findings. Moderate lumbar spondylosis. Right buttock/flank subcutaneous edema. IMPRESSION: No acute findings in the abdomen or pelvis. Unremarkable gallbladder. No biliary dilatation. THIS IS AN ELECTRONICALLY VERIFIED FINAL REPORT 02/16/2025 10:00 AM - Electronically signed by Sujit Beltran MD
[2025-02-16] MEDS: LEXAPRO PO SCH (12:42)
[2025-02-16] MEDS: CRESTOR TAB 10 MG PO SCH (12:42)
[2025-02-16] MEDS: PLAVIX PO SCH (12:43)
[2025-02-16] MEDS: LOPRESSOR TAB 50 MG PO SCH (12:45)
[2025-02-16] MEDS: K-DUR TAB 20 MEQ PO SCH (12:45)
[2025-02-16] MEDS: TAMBOCOR PO SCH (12:46)
[2025-02-16] MEDS: ELIQUIS PO SCH (12:46)
[2025-02-16] MEDS: HYZAAR 50/12.5 MG PO SCH (12:48)
--- NOTE | 2025-02-16 13:47 | DR.H&P ---
H&P History & Physical for Day of: H&P Date: 02/16/25 Chief Complaint Chief Complaint: fall, weakness History of Present Illness History of Present Illness: Patient with multiple hospital admissions over the last 3 months. Was admitted here with pneumonia in November, [facility] with stroke last month and now with generalized weakness and fall. Patient reports she fell "right on my butt." Had to get a friend to help her get up and bring her to the ER. ER workup benign other than an NAVA and severely low potassium. [place] still very tender and sore with any movement, she still feels pretty weak, but does feel slightly improved overall. She is not sure if she will be able to return home but does not want to go to subacute rehab, if she can avoid it. Has been using the bathroom fairly well. CT of the abdomen and pelvis today was benign other than moderate stool burden. ROS: 12 point ROS negative except as noted above. PE: Well-developed, well-nourished female in no acute distress. Heart regular rate and rhythm, lungs are clear, bowel sounds are present. Speech is clear and unlabored. Mood and affect are appropriate. Able to move all extremities with no edema. Past Medical History Past Medical History: Anxiety, CVA, Depression, Dyslipidemia, GERD, Hypertension and Sleep Apnea Past Surgical History Surgical History: Hysterectomy Family History Family Medical History: Cancer, Coronary Artery Disease and Hypertension Social History Does patient currently use any type of tobacco product: No Have you used tobacco products in the last 12 months: No Type of Tobacco Use: None Does any household member use tobacco: No Alcohol Use: None Drug Use: Prescription Drugs Medications Home Medications: Home Medications Medication Instructions Recorded Confirmed Type apixaban 5 mg tablet (Eliquis) 5 mg PO BID 01/09/25 History flecainide 100 mg tablet 100 mg PO BID 01/09/2502/15 History losartan 100 1 tab PO QDAY 01/09/2502/15 History mg-hydrochlorothiazide 25 mg tablet metoprolol tartrate 100 mg tablet 100 mg PO BID 02/15/25 History rosuvastatin 40 mg tablet 40 mg PO QDAY 01/09/2502/15 History lubiprostone 8 mcg capsule 8 mcg PO QDAY 02/14/2501/26 History nifedipine 60 mg tablet,extended 60 mg PO QDAY BP and cardiac w/ Hx 02/14/25 02/15/25 History release atrial fib Allergies Allergies Allergy/AdvReac Type Severity Reaction Status Date / Time aspirin Allergy Unknown Verified 02/15/25 16:28 atorvastatin (Lipitor) Allergy Unknown Verified 12/06/22 10:56 Penicillins Allergy Unknown Makes Verified 02/15/25 16:30 "Knots" under skin per patient. Sulfa (Sulfonamide Allergy Unknown Itching; Verified 12/06/22 10:56 Antibiotics) Rash tramadol Allergy Unknown Verified 12/06/22 10:56 NSAIDS (Non-Steroidal Allergy Verified 12/17/24 17:31 Anti-Inflamma benzyl benzoate Allergy Uncoded 12/17/24 17:31 beta-adrenergic blockers Allergy Uncoded 12/17/24 17:31 celecoxib congeners Allergy Uncoded 12/17/24 17:31 loop diuretics Allergy Uncoded 12/17/24 17:31 polymyxins Allergy Uncoded 12/17/24 17:31 Labs 02/16/25 04:10 02/16/25 04:10 Labs: Laboratory WBC 8.9 X10^3/uL (3.6-10.0) D 02/16/25 04:10 RBC 3.57 X10^6/uL (3.5-5.4) 02/16/25 04:10 Hgb 10.5 g/dL (12.0-16.0) L D 02/16/25 04:10 Hct 29.8 % (36.0-47.0) L 02/16/25 04:10 MCV 83.5 fL (80.0-100.0) 02/16/25 04:10 MCH 29.4 pg (27.0-34.0) 02/16/25 04:10 MCHC 35.2 g/dL (33.0-35.0) H 02/16/25 04:10 RDW 14.2 % (11.6-16.5) 02/16/25 04:10 Plt Count 194 X10^3/uL (150.0-450.0) 02/16/25 04:10 MPV 10.3 fL (7.4-11.0) 02/16/25 04:10 Neut % (Auto) 63.8 % (42.0-75.0) 02/16/25 04:10 Lymph % (Auto) 26.8 % (21.0-51.0) 02/16/25 04:10 [place] % (Auto) 8.3 % (0.0-13.0) 02/16/25 04:10 Eos % (Auto) 0.5 % (0.9-2.9) L 02/16/25 04:10 Baso % (Auto) 0.6 % (0.2-1.0) 02/16/25 04:10 Neut # (Auto) 5.7 x10^3/uL (2.2-4.8) H 02/16/25 04:10 Lymph # (Auto) 2.4 X10^3/uL (1.3-2.9) 02/16/25 04:10 [place] # (Auto) 0.7 x10^3/uL (0.3-0.8) 02/16/25 04:10 Eos # (Auto) 0.0 x10^3/uL (0.0-0.2) 02/16/25 04:10 Baso # (Auto) 0.1 X10^3/uL (0.0-0.1) 02/16/25 04:10 Absolute Nucleated RBC 0.1 /100WBC 02/16/25 04:10 Sodium 141 mmol/L (136-145) 02/16/25 04:10 Corrected Sodium TNP 02/16/25 04:10 Potassium 2.7 mmol/L (3.5-5.1) L* 02/16/25 04:10 Chloride 102 mmol/L (98-107) 02/16/25 04:10 Carbon Dioxide 32.8 mmol/L (21-32) H 02/16/25 04:10 BUN 23 mg/dL (7-18) H 02/16/25 04:10 Creatinine 2.24 mg/dL (0.55-1.02) H 02/16/25 04:10 Est GFR (MDRD) Af Amer 28 (>60) L 02/16/25 04:10 Est GFR (MDRD) Non-Af 23 (>60) L 02/16/25 04:10 Glucose 100 mg/dL (65-99) H 02/16/25 04:10 Lactic Acid 1.1 mmol/L (0.4-2.0) 02/15/25 18:21 Calcium 7.9 mg/dL (8.5-10.1) L 02/16/25 04:10 Corrected Calcium 9.1 mg/dL (8.5-10.1) 02/16/25 04:10 Magnesium 2.0 mg/dL (2.0-2.9) 02/16/25 04:10 Total Bilirubin 0.60 mg/dL (0.2-1.0) 02/16/25 04:10 AST 177 Units/L (15-37) H 02/16/25 04:10 ALT 49 Units/L (12-78) 02/16/25 04:10 Alkaline Phosphatase 66 Units/L (46-116) 02/16/25 04:10 Total Protein 5.4 g/dL (6.4-8.2) L 02/16/25 04:10 Albumin 2.5 g/dL (3.4-5.0) L 02/16/25 04:10 Globulin 2.9 g/dL (2.5-4.5) 02/16/25 04:10 Albumin/Globulin Ratio 0.9 Ratio (1.1-2.1) L 02/16/25 04:10 Specimen Type Catherized urine 02/15/25 16:02 Urine Color Yellow (YELLOW) 02/15/25 16:02 Urine Appearance Hazy (CLEAR) 02/15/25 16:02 Urine pH 5.0 (5.0 - 8.0) 02/15/25 16:02 Ur Specific [place] 1.030 (1.000-1.030) 02/15/25 16:02 Urine Protein 3+ (NEGATIVE) 02/15/25 16:02 Urine Glucose (UA) Negative (NEGATIVE) 02/15/25 16:02 Urine Ketones Negative (NEGATIVE) 02/15/25 16:02 Urine Blood 5+ (NEGATIVE) 02/15/25 16:02 Urine Nitrite Negative (NEGATIVE) 02/15/25 16:02 Urine Bilirubin 1+ (NEGATIVE) 02/15/25 16:02 Urine Urobilinogen 1+ (NORMAL) 02/15/25 16:02 Ur Leukocyte Esterase Negative (NEGATIVE) 02/15/25 16:02 Urine RBC 0-2 /HPF (0-3) 02/15/25 16:02 Urine WBC 3-5 /HPF (0-5) 02/15/25 16:02 Ur Squamous Epith Cells Rare /HPF (NEGATIVE) 02/15/25 16:02 Ur Renal Epithelial Cell Few /HPF (NEGATIVE) 02/15/25 16:02 Amorphous Sediment 3+ /HPF (NEGATIVE) 02/15/25 16:02 Urine Bacteria Trace /HPF (NEGATIVE) 02/15/25 16:02 Granular Casts Many /LPF (NEGATIVE) 02/15/25 16:02 Ur Culture Indicated? No/not indicated 02/15/25 16:02 SARS-CoV-2 (PCR) Negative (NEGATIVE) 02/15/25 15:28 Influenza Type A (PCR) Negative (NEGATIVE) 02/15/25 15:28 Influenza Type B (PCR) Negative (NEGATIVE) 02/15/25 15:28 RSV (PCR) Negative (NEGATIVE) 02/15/25 15:28 S. pyogenes (TEM-PCR) Not detected (NOT DETECT) 02/15/25 15:28 Physical Exam Vital Signs: Vital Signs Temperature 97.5 F Temperature 97.5 F Pulse Rate [Left Radial] 63 Pulse Rate [Left Radial] 65 Respiratory Rate 18 Respiratory Rate 16 Blood Pressure [Left Arm] 126/59 Blood Pressure [Left Arm] 114/57 O2 Sat by Pulse Oximetry 95 O2 Sat by Pulse Oximetry 95 Assessment/Plan (1) NAVA (acute kidney injury): Narrative Support Text: Continue p.o. and IV fluids. Status: Acute (2) Acute hypokalemia: Narrative Support Text: Replace per protocol. Status: Acute (3) Weakness following cerebrovascular accident (CVA): Narrative Support Text: PT and OT assessment tomorrow. Status: Acute (4) Generalized weakness: Status: Acute (5) Ground-level fall: Status: Acute
[2025-02-16] MEDS: TYLENOL 325 MG TAB PO PRN (17:12)
[2025-02-17 06:01] LABS: MEAN PLATELET VOLUME 10.1 fL (7.4-11.0); RED CELL DISTRIBUTION WIDTH 14.4 % (11.6-16.5)
[2025-02-17 06:16] LABS: COR CA(FOR HYPOALB) 9.2 mg/dL (8.5-10.1); CREATININE 1.13 mg/dL (0.55-1.02); eGFR NON BLACK RACES 50 (>60)
[2025-02-17] MEDS ORDERED: CONSULT PHARMACY - POTASSIUM & MAGNESIUM XX SCH (07:00)
[2025-02-17] MEDS ORDERED: LEXAPRO ONE (07:55)
[2025-02-17] MEDS: MAG-OX TAB PO SCH (08:39)
[2025-02-17] MEDS: K-DUR TAB 20 MEQ PO SCH ×2 (08:40→11:03)
--- NOTE | 2025-02-17 09:56 | PCM.PROG ---
Progress Note Progress Note for Day of Date of Exam: 02/17/25 Subjective Subjective: Patient seen at bedside, no acute events overnight. She is currently admitted for NAVA, fall and generalized weakness. She does report feeling better today. Her renal function has improved. Her potassium and magnesium are slightly low. Labs/imaging reviewed: - WBC 7.7 hemoglobin 9.3 potassium 3.2 magnesium 1.8 creatinine 1.13 AST 117 ALT 39 - CTAP reviewed - Cultures pending Plan: Continue current treatment. Continue gentle hydration. Replace electrolytes as per protocol. Consult PT/OT. Continue home medications. Fall precautions. Monitor a.m. labs and imaging. Past Medical Family Social History Allergies: Allergies aspirin Allergy (Unknown, Verified 02/15/25 16:28) atorvastatin (Lipitor) Allergy (Unknown, Verified 12/06/22 10:56) Reason: Drug allergy Penicillins Allergy (Unknown, Verified 02/15/25 16:30) Makes "Knots" under skin per patient. Makes "Knots" under skin Sulfa (Sulfonamide Antibiotics) Allergy (Unknown, Verified 12/06/22 10:56) Itching; Rash Onset Date: 05/23/2016 tramadol Allergy (Unknown, Verified 12/06/22 10:56) Reason: Drug allergy; Comments: causes vomiting. NSAIDS (Non-Steroidal Anti-Inflamma Allergy (Verified 12/17/24 17:31) benzyl benzoate Allergy (Uncoded 12/17/24 17:31) beta-adrenergic blockers Allergy (Uncoded 12/17/24 17:31) celecoxib congeners Allergy (Uncoded 12/17/24 17:31) loop diuretics Allergy (Uncoded 12/17/24 17:31) polymyxins Allergy (Uncoded 12/17/24 17:31) Vital Signs and I&O's Vital Signs: Vital Signs Temperature 98.1 F Temperature 98.1 F Pulse Rate [Left Radial] 60 Pulse Rate [Left Radial] 57 Respiratory Rate 19 Respiratory Rate 19 Respiratory Rate 20 Blood Pressure [Left Arm] 123/58 Blood Pressure [Left Arm] 97/50 O2 Sat by Pulse Oximetry 94 O2 Sat by Pulse Oximetry 95 Intake and Output: Intake & Output 02/14/25 02/15/25 02/16/25 02/17/25 23:59 23:59 23:59 23:59 Intake Total 711 / 1151 2968 / 2968 941 / 941 Balance 711 / 1151 2968 / 2968 941 / 941 Physical Exam Oriented: Normal Respiratory: Normal Cardiovascular: Normal Auscultation: Bowel Sounds: Normal Palpation: Normal Tenderness: Normal Skin: Decreased [place] Musculoskeletal: Normal Psychiatric: Normal Mood Description: Calm Affect: Normal Speech Pattern: Clear and Appropriate Laboratory and Diagnostics 02/17/25 05:09 02/17/25 05:09 Labs: 02/15/25 16:02 Urine,Clean Catch Urine Culture - Preliminary Laboratory WBC 7.7 X10^3/uL (3.6-10.0) 02/17/25 05:09 RBC 3.16 X10^6/uL (3.5-5.4) L 02/17/25 05:09 Hgb 9.3 g/dL (12.0-16.0) L 02/17/25 05:09 Hct 26.8 % (36.0-47.0) L 02/17/25 05:09 MCV 84.8 fL (80.0-100.0) 02/17/25 05:09 MCH 29.6 pg (27.0-34.0) 02/17/25 05:09 MCHC 34.9 g/dL (33.0-35.0) 02/17/25 05:09 RDW 14.4 % (11.6-16.5) 02/17/25 05:09 Plt Count 187 X10^3/uL (150.0-450.0) 02/17/25 05:09 MPV 10.1 fL (7.4-11.0) 02/17/25 05:09 Neut % (Auto) 61.9 % (42.0-75.0) 02/17/25 05:09 Lymph % (Auto) 29.0 % (21.0-51.0) 02/17/25 05:09 [place] % (Auto) 7.8 % (0.0-13.0) 02/17/25 05:09 Eos % (Auto) 0.9 % (0.9-2.9) 02/17/25 05:09 Baso % (Auto) 0.4 % (0.2-1.0) 02/17/25 05:09 Neut # (Auto) 4.8 x10^3/uL (2.2-4.8) 02/17/25 05:09 Lymph # (Auto) 2.2 X10^3/uL (1.3-2.9) 02/17/25 05:09 [place] # (Auto) 0.6 x10^3/uL (0.3-0.8) 02/17/25 05:09 Eos # (Auto) 0.1 x10^3/uL (0.0-0.2) 02/17/25 05:09 Baso # (Auto) 0.0 X10^3/uL (0.0-0.1) 02/17/25 05:09 Absolute Nucleated RBC 0.1 /100WBC 02/17/25 05:09 Sodium 142 mmol/L (136-145) 02/17/25 05:09 Corrected Sodium TNP 02/17/25 05:09 Potassium 3.2 mmol/L (3.5-5.1) L 02/17/25 05:09 Chloride 106 mmol/L (98-107) 02/17/25 05:09 Carbon Dioxide 29.7 mmol/L (21-32) 02/17/25 05:09 BUN 17 mg/dL (7-18) 02/17/25 05:09 Creatinine 1.13 mg/dL (0.55-1.02) H 02/17/25 05:09 Est GFR (MDRD) Af Amer > 60 (>60) 02/17/25 05:09 Est GFR (MDRD) Non-Af 50 (>60) L 02/17/25 05:09 Glucose 94 mg/dL (65-99) 02/17/25 05:09 Lactic Acid 1.1 mmol/L (0.4-2.0) 02/15/25 18:21 Calcium 7.8 mg/dL (8.5-10.1) L 02/17/25 05:09 Corrected Calcium 9.2 mg/dL (8.5-10.1) 02/17/25 05:09 Magnesium 1.8 mg/dL (2.0-2.9) L 02/17/25 05:09 Total Bilirubin 0.40 mg/dL (0.2-1.0) 02/17/25 05:09 AST 117 Units/L (15-37) H 02/17/25 05:09 ALT 39 Units/L (12-78) 02/17/25 05:09 Alkaline Phosphatase 58 Units/L (46-116) 02/17/25 05:09 Total Protein 5.0 g/dL (6.4-8.2) L 02/17/25 05:09 Albumin 2.2 g/dL (3.4-5.0) L 02/17/25 05:09 Globulin 2.8 g/dL (2.5-4.5) 02/17/25 05:09 Albumin/Globulin Ratio 0.8 Ratio (1.1-2.1) L 02/17/25 05:09 Specimen Type Catherized urine 02/15/25 16:02 Urine Color Yellow (YELLOW) 02/15/25 16:02 Urine Appearance Hazy (CLEAR) 02/15/25 16:02 Urine pH 5.0 (5.0 - 8.0) 02/15/25 16:02 Ur Specific [place] 1.030 (1.000-1.030) 02/15/25 16:02 Urine Protein 3+ (NEGATIVE) 02/15/25 16:02 Urine Glucose (UA) Negative (NEGATIVE) 02/15/25 16:02 Urine Ketones Negative (NEGATIVE) 02/15/25 16:02 Urine Blood 5+ (NEGATIVE) 02/15/25 16:02 Urine Nitrite Negative (NEGATIVE) 02/15/25 16:02 Urine Bilirubin 1+ (NEGATIVE) 02/15/25 16:02 Urine Urobilinogen 1+ (NORMAL) 02/15/25 16:02 Ur Leukocyte Esterase Negative (NEGATIVE) 02/15/25 16:02 Urine RBC 0-2 /HPF (0-3) 02/15/25 16:02 Urine WBC 3-5 /HPF (0-5) 02/15/25 16:02 Ur Squamous Epith Cells Rare /HPF (NEGATIVE) 02/15/25 16:02 Ur Renal Epithelial Cell Few /HPF (NEGATIVE) 02/15/25 16:02 Amorphous Sediment 3+ /HPF (NEGATIVE) 02/15/25 16:02 Urine Bacteria Trace /HPF (NEGATIVE) 02/15/25 16:02 Granular Casts Many /LPF (NEGATIVE) 02/15/25 16:02 Ur Culture Indicated? No/not indicated 02/15/25 16:02 SARS-CoV-2 (PCR) Negative (NEGATIVE) 02/15/25 15:28 Influenza Type A (PCR) Negative (NEGATIVE) 02/15/25 15:28 Influenza Type B (PCR) Negative (NEGATIVE) 02/15/25 15:28 RSV (PCR) Negative (NEGATIVE) 02/15/25 15:28 S. pyogenes (TEM-PCR) Not detected (NOT DETECT) 02/15/25 15:28 Plan (1) NAVA (acute kidney injury): Status: Acute (2) Acute hypokalemia: Status: Acute (3) Weakness following cerebrovascular accident (CVA): Status: Chronic (4) Generalized weakness: Status: Acute (5) Ground-level fall: Status: Acute
[2025-02-18 05:52] LABS: MEAN PLATELET VOLUME 10.4 fL (7.4-11.0); RED CELL DISTRIBUTION WIDTH 14.4 % (11.6-16.5)
[2025-02-18 06:00] LABS: COR CA(FOR HYPOALB) 9.3 mg/dL (8.5-10.1); CREATININE 0.98 mg/dL (0.55-1.02); eGFR NON BLACK RACES 59 (>60)
[2025-02-18] MEDS ORDERED: LEXAPRO ONE (08:23)
[2025-02-18] MEDS: ROCEPHIN VIAL 1 GRAM 1 G in NS 100 ML IV 100 ML IV SCH (09:06)
--- NOTE | 2025-02-18 09:31 | PCM.PROG ---
Progress Note Progress Note for Day of Date of Exam: 02/18/25 Subjective Subjective: Patient seen at bedside, no acute events overnight. She is feeling better today. She did ambulate with physical therapy yesterday. She prefers to go to SNF, CM has sent referrals. Urine culture did show gram-negative rods. She reports eating better. Labs/imaging reviewed: - WBC 8.6 hemoglobin 9.6 potassium 3.6 creatinine 0.98 - Blood cultures no growth - Urine culture gram-negative aundrea Plan: Continue current treatment. Add Rocephin. Follow-up final cultures. PT/OT as tolerated. Replace electrolytes as per protocol. Continue hydration. Continue home medications. CM working on SNF placement. Monitor a.m. labs and imaging. Past Medical Family Social History Allergies: Allergies aspirin Allergy (Unknown, Verified 02/15/25 16:28) atorvastatin (Lipitor) Allergy (Unknown, Verified 12/06/22 10:56) Reason: Drug allergy Penicillins Allergy (Unknown, Verified 02/15/25 16:30) Makes "Knots" under skin per patient. Makes "Knots" under skin Sulfa (Sulfonamide Antibiotics) Allergy (Unknown, Verified 12/06/22 10:56) Itching; Rash Onset Date: 05/23/2016 tramadol Allergy (Unknown, Verified 12/06/22 10:56) Reason: Drug allergy; Comments: causes vomiting. NSAIDS (Non-Steroidal Anti-Inflamma Allergy (Verified 12/17/24 17:31) benzyl benzoate Allergy (Uncoded 12/17/24 17:31) beta-adrenergic blockers Allergy (Uncoded 12/17/24 17:31) celecoxib congeners Allergy (Uncoded 12/17/24 17:31) loop diuretics Allergy (Uncoded 12/17/24 17:31) polymyxins Allergy (Uncoded 12/17/24 17:31) Vital Signs and I&O's Vital Signs: Vital Signs Temperature 97.6 F Pulse Rate [Left Radial] 51 Respiratory Rate 18 Blood Pressure [Right Arm] 140/65 O2 Sat by Pulse Oximetry 96 Intake and Output: Intake & Output 02/15/25 02/16/25 02/17/25 02/18/25 23:59 23:59 23:59 23:59 Intake Total 711 / 1151 2968 / 2968 3626 / 3626 816 / 816 Balance 711 / 1151 2968 / 2968 3626 / 3626 816 / 816 Physical Exam Oriented: Normal Throat: Normal Respiratory: Normal Cardiovascular: Normal Auscultation: Bowel Sounds: Normal Palpation: Normal Tenderness: Normal Skin: Decreased [place]urg[place] Musculoskeletal: Normal Psychiatric: Normal Mood Description: Calm Affect: Normal Speech Pattern: Clear and Appropriate Laboratory and Diagnostics 02/18/25 05:09 02/18/25 05:09 Labs: 02/15/25 16:02 Urine,Clean Catch Urine Culture - Preliminary 02/15/25 18:28 Blood Blood Culture - Preliminary 02/15/25 18:21 Blood Blood Culture - Preliminary Laboratory WBC 8.6 X10^3/uL (3.6-10.0) 02/18/25 05:09 RBC 3.24 X10^6/uL (3.5-5.4) L 02/18/25 05:09 Hgb 9.6 g/dL (12.0-16.0) L 02/18/25 05:09 Hct 27.6 % (36.0-47.0) L 02/18/25 05:09 MCV 85.1 fL (80.0-100.0) 02/18/25 05:09 MCH 29.7 pg (27.0-34.0) 02/18/25 05:09 MCHC 34.9 g/dL (33.0-35.0) 02/18/25 05:09 RDW 14.4 % (11.6-16.5) 02/18/25 05:09 Plt Count 218 X10^3/uL (150.0-450.0) 02/18/25 05:09 MPV 10.4 fL (7.4-11.0) 02/18/25 05:09 Neut % (Auto) 65.6 % (42.0-75.0) 02/18/25 05:09 Lymph % (Auto) 26.1 % (21.0-51.0) 02/18/25 05:09 [place] % (Auto) 6.5 % (0.0-13.0) 02/18/25 05:09 Eos % (Auto) 1.5 % (0.9-2.9) 02/18/25 05:09 Baso % (Auto) 0.3 % (0.2-1.0) 02/18/25 05:09 Neut # (Auto) 5.6 x10^3/uL (2.2-4.8) H 02/18/25 05:09 Lymph # (Auto) 2.2 X10^3/uL (1.3-2.9) 02/18/25 05:09 [place] # (Auto) 0.6 x10^3/uL (0.3-0.8) 02/18/25 05:09 Eos # (Auto) 0.1 x10^3/uL (0.0-0.2) 02/18/25 05:09 Baso # (Auto) 0.0 X10^3/uL (0.0-0.1) 02/18/25 05:09 Absolute Nucleated RBC 0.2 /100WBC 02/18/25 05:09 Sodium 140 mmol/L (136-145) 02/18/25 05:09 Corrected Sodium TNP 02/18/25 05:09 Potassium 3.6 mmol/L (3.5-5.1) 02/18/25 05:09 Chloride 107 mmol/L (98-107) 02/18/25 05:09 Carbon Dioxide 28.5 mmol/L (21-32) 02/18/25 05:09 BUN 12 mg/dL (7-18) 02/18/25 05:09 Creatinine 0.98 mg/dL (0.55-1.02) 02/18/25 05:09 Est GFR (MDRD) Af Amer > 60 (>60) 02/18/25 05:09 Est GFR (MDRD) Non-Af 59 (>60) 02/18/25 05:09 Glucose 97 mg/dL (65-99) 02/18/25 05:09 Lactic Acid 1.1 mmol/L (0.4-2.0) 02/15/25 18:21 Calcium 7.9 mg/dL (8.5-10.1) L 02/18/25 05:09 Corrected Calcium 9.3 mg/dL (8.5-10.1) 02/18/25 05:09 Magnesium 1.8 mg/dL (2.0-2.9) L 02/18/25 05:09 Total Bilirubin 0.30 mg/dL (0.2-1.0) 02/18/25 05:09 AST 103 Units/L (15-37) H 02/18/25 05:09 ALT 44 Units/L (12-78) 02/18/25 05:09 Alkaline Phosphatase 62 Units/L (46-116) 02/18/25 05:09 Total Protein 5.2 g/dL (6.4-8.2) L 02/18/25 05:09 Albumin 2.3 g/dL (3.4-5.0) L 02/18/25 05:09 Globulin 2.9 g/dL (2.5-4.5) 02/18/25 05:09 Albumin/Globulin Ratio 0.8 Ratio (1.1-2.1) L 02/18/25 05:09 Specimen Type Catherized urine 02/15/25 16:02 Urine Color Yellow (YELLOW) 02/15/25 16:02 Urine Appearance Hazy (CLEAR) 02/15/25 16:02 Urine pH 5.0 (5.0 - 8.0) 02/15/25 16:02 Ur Specific [place] 1.030 (1.000-1.030) 02/15/25 16:02 Urine Protein 3+ (NEGATIVE) 02/15/25 16:02 Urine Glucose (UA) Negative (NEGATIVE) 02/15/25 16:02 Urine Ketones Negative (NEGATIVE) 02/15/25 16:02 Urine Blood 5+ (NEGATIVE) 02/15/25 16:02 Urine Nitrite Negative (NEGATIVE) 02/15/25 16:02 Urine Bilirubin 1+ (NEGATIVE) 02/15/25 16:02 Urine Urobilinogen 1+ (NORMAL) 02/15/25 16:02 Ur Leukocyte Esterase Negative (NEGATIVE) 02/15/25 16:02 Urine RBC 0-2 /HPF (0-3) 02/15/25 16:02 Urine WBC 3-5 /HPF (0-5) 02/15/25 16:02 Ur Squamous Epith Cells Rare /HPF (NEGATIVE) 02/15/25 16:02 Ur Renal Epithelial Cell Few /HPF (NEGATIVE) 02/15/25 16:02 Amorphous Sediment 3+ /HPF (NEGATIVE) 02/15/25 16:02 Urine Bacteria Trace /HPF (NEGATIVE) 02/15/25 16:02 Granular Casts Many /LPF (NEGATIVE) 02/15/25 16:02 Ur Culture Indicated? No/not indicated 02/15/25 16:02 SARS-CoV-2 (PCR) Negative (NEGATIVE) 02/15/25 15:28 Influenza Type A (PCR) Negative (NEGATIVE) 02/15/25 15:28 Influenza Type B (PCR) Negative (NEGATIVE) 02/15/25 15:28 RSV (PCR) Negative (NEGATIVE) 02/15/25 15:28 S. pyogenes (TEM-PCR) Not detected (NOT DETECT) 02/15/25 15:28 Plan (1) Urinary tract infection: Status: Acute (2) NAVA (acute kidney injury): Status: Acute (3) Acute hypokalemia: Status: Acute (4) Weakness following cerebrovascular accident (CVA): Status: Chronic (5) Generalized weakness: Status: Acute (6) Ground-level fall: Status: Acute
[2025-02-18] MEDS: FIORICET TAB PO ONE (13:35)
[2025-02-19 03:25] VITALS: RESP 20
[2025-02-19 05:34] LABS: MEAN PLATELET VOLUME 10.0 fL (7.4-11.0); RED CELL DISTRIBUTION WIDTH 14.3 % (11.6-16.5)
[2025-02-19 05:45] LABS: COR CA(FOR HYPOALB) 9.1 mg/dL (8.5-10.1); CREATININE 0.84 mg/dL (0.55-1.02); eGFR NON BLACK RACES > 60 (>60)
[2025-02-19] MEDS ORDERED: CONSULT PHARMACY - POTASSIUM & MAGNESIUM XX SCH (06:00)
[2025-02-19] MEDS ORDERED: LEXAPRO ONE (09:00)
[2025-02-19] MEDS ORDERED: K-DUR TAB 20 MEQ PO SCH (09:00)
[2025-02-19] MEDS: MAG-OX TAB PO SCH (09:13)
[2025-02-19 10:50] VITALS: BP 132/63; PULSE 68; TEMP 98.2; O2SAT 94
--- NOTE | 2025-02-19 16:45 | W.DIS.FURT ---
Summary of Discharge Discharge Summary of Date Date of Exam: 02/19/25 Admission Date Date of Admission: 02/16/25 Admission Diagnosis Patient Problems (Updated 02/18/25 @ 09:31 by Janice Mcarthur MD) NAVA (acute kidney injury) (Acute) N17.9 Sepsis (Acute) A41.9 Generalized weakness (Acute) R53.1 Hospital Course: Patient is a 74-year-old female with a past medical history of atrial fibrillation, CVA, recurrent falls, hypertension, hyperlipidemia, GERD presented after having a fall at home. She reports generalized weakness and pain on the right side. ER workup showed elevated BUN/creatinine and low potassium. CT abdomen pelvis was also done which did not show any acute changes except stool burden. She was started on IV fluids and potassium replacement. She was admitted for further evaluation. Her labs are monitored daily and electrolytes replaced as needed. Her renal function improved with hydration. She did work with PT/OT. UA was suggestive of infection so she was started on IV Rocephin. Patient was recommended SNF placement. CM sent out referrals and patient was accepted. She was stable to be discharged to SNF on p.o. antibiotic. She was ambulating better and tolerating p.o. intake. Vital Signs: Vital Signs (72 hours) 02/16/25 12:00 02/16/25 16:00 02/16/25 17:12 Temperature 98.8 F 99.0 F Pulse Rate [Left Radial] 73 57 L Respiratory Rate 18 17 20 Blood Pressure [Left Arm] 146/67 104/51 Blood Pressure [Right Arm] O2 Sat by Pulse Oximetry 92 L 96 Oxygen Delivery Method Room Air Room Air 02/16/25 19:00 02/16/25 19:57 02/16/25 23:56 Temperature 98.9 F 98.0 F Pulse Rate [Left Radial] 59 L 53 L Respiratory Rate 17 20 Blood Pressure [Left Arm] 88/54 94/55 Blood Pressure [Right Arm] O2 Sat by Pulse Oximetry 97 93 L Oxygen Delivery Method Room Air Room Air Room Air 02/17/25 04:00 02/17/25 07:00 02/17/25 08:00 Temperature 98.1 F 98.1 F Pulse Rate [Left Radial] 57 L 60 Respiratory Rate 20 19 Blood Pressure [Left Arm] 97/50 123/58 Blood Pressure [Right Arm] O2 Sat by Pulse Oximetry 95 94 L Oxygen Delivery Method Room Air Room Air Room Air 02/17/25 08:46 02/17/25 09:46 02/17/25 12:00 Temperature 98.3 F Pulse Rate [Left Radial] 52 L Respiratory Rate 19 19 18 Blood Pressure [Left Arm] 99/58 Blood Pressure [Right Arm] O2 Sat by Pulse Oximetry 94 L Oxygen Delivery Method Room Air 02/17/25 14:08 02/17/25 15:08 02/17/25 16:00 Temperature 98.4 F Pulse Rate [Left Radial] 54 L Respiratory Rate 18 18 17 Blood Pressure [Left Arm] 109/67 Blood Pressure [Right Arm] O2 Sat by Pulse Oximetry 94 L Oxygen Delivery Method Room Air 02/17/25 19:00 02/17/25 20:00 02/17/25 21:59 Temperature 98.5 F Pulse Rate [Left Radial] 60 Respiratory Rate 19 18 Blood Pressure [Left Arm] 104/59 Blood Pressure [Right Arm] O2 Sat by Pulse Oximetry 95 Oxygen Delivery Method Room Air Room Air 02/17/25 22:59 02/17/25 23:19 02/18/25 04:00 Temperature 97.6 F 97.6 F Pulse Rate [Left Radial] 52 L 51 L Respiratory Rate 18 18 18 Blood Pressure [Left Arm] Blood Pressure [Right Arm] 117/83 140/65 O2 Sat by Pulse Oximetry 95 96 Oxygen Delivery Method Room Air Room Air 02/18/25 07:00 02/18/25 08:00 02/18/25 12:00 Temperature 98.2 F 98.5 F Pulse Rate [Left Radial] 59 L 59 L Respiratory Rate 18 17 Blood Pressure [Left Arm] Blood Pressure [Right Arm] 128/65 139/59 O2 Sat by Pulse Oximetry 95 95 Oxygen Delivery Method Room Air Room Air Room Air 02/18/25 13:35 02/18/25 14:35 02/18/25 15:52 Temperature 97.8 F Pulse Rate [Left Radial] 55 L Respiratory Rate 20 20 17 Blood Pressure [Left Arm] Blood Pressure [Right Arm] 126/59 O2 Sat by Pulse Oximetry 94 L Oxygen Delivery Method Room Air 02/18/25 19:00 02/18/25 20:00 02/18/25 22:46 Temperature 97.9 F Pulse Rate [Left Radial] 60 Respiratory Rate 17 20 Blood Pressure [Left Arm] Blood Pressure [Right Arm] 134/61 O2 Sat by Pulse Oximetry 96 Oxygen Delivery Method Room Air Room Air 02/18/25 23:46 02/19/25 00:00 02/19/25 03:24 Temperature 98 F 97.6 F Pulse Rate [Left Radial] 57 L 57 L Respiratory Rate 20 18 20 Blood Pressure [Left Arm] 123/60 Blood Pressure [Right Arm] 122/62 O2 Sat by Pulse Oximetry 94 L 97 Oxygen Delivery Method Room Air Room Air Labs: Laboratory Last Values WBC 8.4 X10^3/uL (3.6-10.0) 02/19/25 05:12 RBC 3.39 X10^6/uL (3.5-5.4) L 02/19/25 05:12 Hgb 10.1 g/dL (12.0-16.0) L 02/19/25 05:12 Hct 28.8 % (36.0-47.0) L 02/19/25 05:12 MCV 85.0 fL (80.0-100.0) 02/19/25 05:12 MCH 29.7 pg (27.0-34.0) 02/19/25 05:12 MCHC 35.0 g/dL (33.0-35.0) 02/19/25 05:12 RDW 14.3 % (11.6-16.5) 02/19/25 05:12 Plt Count 222 X10^3/uL (150.0-450.0) 02/19/25 05:12 MPV 10.0 fL (7.4-11.0) 02/19/25 05:12 Neut % (Auto) 63.3 % (42.0-75.0) 02/19/25 05:12 Lymph % (Auto) 27.7 % (21.0-51.0) 02/19/25 05:12 [place] % (Auto) 6.5 % (0.0-13.0) 02/19/25 05:12 Eos % (Auto) 2.0 % (0.9-2.9) 02/19/25 05:12 Baso % (Auto) 0.5 % (0.2-1.0) 02/19/25 05:12 Neut # (Auto) 5.3 x10^3/uL (2.2-4.8) H 02/19/25 05:12 Lymph # (Auto) 2.3 X10^3/uL (1.3-2.9) 02/19/25 05:12 [place] # (Auto) 0.5 x10^3/uL (0.3-0.8) 02/19/25 05:12 Eos # (Auto) 0.2 x10^3/uL (0.0-0.2) 02/19/25 05:12 Baso # (Auto) 0.0 X10^3/uL (0.0-0.1) 02/19/25 05:12 Absolute Nucleated RBC 0.1 /100WBC 02/19/25 05:12 Sodium 140 mmol/L (136-145) 02/19/25 05:12 Corrected Sodium TNP 02/19/25 05:12 Potassium 3.7 mmol/L (3.5-5.1) 02/19/25 05:12 Chloride 107 mmol/L (98-107) 02/19/25 05:12 Carbon Dioxide 30.1 mmol/L (21-32) 02/19/25 05:12 BUN 8 mg/dL (7-18) 02/19/25 05:12 Creatinine 0.84 mg/dL (0.55-1.02) 02/19/25 05:12 Est GFR (MDRD) Af Amer > 60 (>60) 02/19/25 05:12 Est GFR (MDRD) Non-Af > 60 (>60) 02/19/25 05:12 Glucose 97 mg/dL (65-99) 02/19/25 05:12 Lactic Acid 1.1 mmol/L (0.4-2.0) 02/15/25 18:21 Calcium 7.7 mg/dL (8.5-10.1) L 02/19/25 05:12 Corrected Calcium 9.1 mg/dL (8.5-10.1) 02/19/25 05:12 Magnesium 1.6 mg/dL (2.0-2.9) L 02/19/25 05:12 Total Bilirubin 0.30 mg/dL (0.2-1.0) 02/19/25 05:12 AST 78 Units/L (15-37) H 02/19/25 05:12 ALT 39 Units/L (12-78) 02/19/25 05:12 Alkaline Phosphatase 63 Units/L (46-116) 02/19/25 05:12 Total Protein 5.2 g/dL (6.4-8.2) L 02/19/25 05:12 Albumin 2.2 g/dL (3.4-5.0) L 02/19/25 05:12 Globulin 3.0 g/dL (2.5-4.5) 02/19/25 05:12 Albumin/Globulin Ratio 0.7 Ratio (1.1-2.1) L 02/19/25 05:12 Specimen Type Catherized urine 02/15/25 16:02 Urine Color Yellow (YELLOW) 02/15/25 16:02 Urine Appearance Hazy (CLEAR) 02/15/25 16:02 Urine pH 5.0 (5.0 - 8.0) 02/15/25 16:02 Ur Specific [place] 1.030 (1.000-1.030) 02/15/25 16:02 Urine Protein 3+ (NEGATIVE) 02/15/25 16:02 Urine Glucose (UA) Negative (NEGATIVE) 02/15/25 16:02 Urine Ketones Negative (NEGATIVE) 02/15/25 16:02 Urine Blood 5+ (NEGATIVE) 02/15/25 16:02 Urine Nitrite Negative (NEGATIVE) 02/15/25 16:02 Urine Bilirubin 1+ (NEGATIVE) 02/15/25 16:02 Urine Urobilinogen 1+ (NORMAL) 02/15/25 16:02 Ur Leukocyte Esterase Negative (NEGATIVE) 02/15/25 16:02 Urine RBC 0-2 /HPF (0-3) 02/15/25 16:02 Urine WBC 3-5 /HPF (0-5) 02/15/25 16:02 Ur Squamous Epith Cells Rare /HPF (NEGATIVE) 02/15/25 16:02 Ur Renal Epithelial Cell Few /HPF (NEGATIVE) 02/15/25 16:02 Amorphous Sediment 3+ /HPF (NEGATIVE) 02/15/25 16:02 Urine Bacteria Trace /HPF (NEGATIVE) 02/15/25 16:02 Granular Casts Many /LPF (NEGATIVE) 02/15/25 16:02 Ur Culture Indicated? No/not indicated 02/15/25 16:02 SARS-CoV-2 (PCR) Negative (NEGATIVE) 02/15/25 15:28 Influenza Type A (PCR) Negative (NEGATIVE) 02/15/25 15:28 Influenza Type B (PCR) Negative (NEGATIVE) 02/15/25 15:28 RSV (PCR) Negative (NEGATIVE) 02/15/25 15:28 S. pyogenes (TEM-PCR) Not detected (NOT DETECT) 02/15/25 15:28 Reason For Visit: SEPSIS, NAVA Discharge Diagnosis All Active Problems (Updated 02/18/25 @ 09:31 by Janice Mcarthur MD) Acute hypokalemia (Acute) Ground-level fall (Acute) Weakness following cerebrovascular accident (CVA) (Chronic) NAVA (acute kidney injury) (Acute) Sepsis (Acute) Generalized weakness (Acute) Medication management changed (Acute) Flu vaccine need (Acute) Irregular heartbeat (Acute) Atypical chest pain (Acute) Acute CVA (cerebrovascular accident) (Acute) Focal infarction of brain (Acute) Disturbance of sleep pattern associated with pain (Acute) Obstructive sleep apnea syndrome (Acute) Bradycardia with 51-60 beats per minute (Acute) Neck and shoulder pain (Chronic) History of recent fall (Acute) TMJ inflammation (Acute) Dysuria-frequency syndrome (Acute) Anxiety (Chronic) Encounter for mammogram to establish baseline mammogram (Chronic) Hypertension with goal blood pressure less than 130/80 (Chronic) Urinary tract infection (Acute) Plan of Treatment: Continue with present treatment and follow up plan. Pt is to keep follow up appointment as instructed and take medications as ordered. Discharge Medications Discharge Medications: aspirin Allergy (Unknown, Verified 02/15/25 16:28) atorvastatin (Lipitor) Allergy (Unknown, Verified 12/06/22 10:56) Penicillins Allergy (Unknown, Verified 02/15/25 16:30) Makes "Knots" under skin per patient. Sulfa (Sulfonamide Antibiotics) Allergy (Unknown, Verified 12/06/22 10:56) Itching; Rash tramadol Allergy (Unknown, Verified 12/06/22 10:56) NSAIDS (Non-Steroidal Anti-Inflamma Allergy (Verified 12/17/24 17:31) benzyl benzoate Allergy (Uncoded 12/17/24 17:31) beta-adrenergic blockers Allergy (Uncoded 12/17/24 17:31) celecoxib congeners Allergy (Uncoded 12/17/24 17:31) loop diuretics Allergy (Uncoded 12/17/24 17:31) polymyxins Allergy (Uncoded 12/17/24 17:31) New Prescriptions cephalexin 500 mg capsule 500 mg PO BID 5 days #10 caps 02/19/25 [Rx] Discharge Disposition Discharge Disposition: SNF Discharge Condition: stable Discharge Plan Discharge Plan Hospital Course: Patient is a 74-year-old female with a past medical history of atrial fibrillation, CVA, recurrent falls, hypertension, hyperlipidemia, GERD presented after having a fall at home. She reports generalized weakness and pain on the right side. ER workup showed elevated BUN/creatinine and low potassium. CT abdomen pelvis was also done which did not show any acute changes except stool burden. She was started on IV fluids and potassium replacement. She was admitted for further evaluation. Her labs are monitored daily and electrolytes replaced as needed. Her renal function improved with hydration. She did work with PT/OT. UA was suggestive of infection so she was started on IV Rocephin. Patient was recommended SNF placement. CM sent out referrals and patient was accepted. She was stable to be discharged to SNF on p.o. antibiotic. She was ambulating better and tolerating p.o. intake. Patient Disposition: SNF Condition: Stable Health Concerns: Post Hospitalization: new medications and changes needed to prevent readmission or further decline. Pt educated and given instructions on all concerns. Care Plan Goals: Problem: Activity Intolerance Goal: Increased tolerance to activity Instructions: Follow provided instructions. Follow up with primary physician as directed. Contact primary care physician or report to the closest Emergency Room if condition worsens. Plan of Treatment: Continue with present treatment and follow up plan. Pt is to keep follow up appointment as instructed and take medications as ordered. Prescription drug monitoring program results: PDMP reviewed and no concerns identified Prescriptions: New cephalexin 500 mg capsule 500 mg PO BID 5 Days Qty: 10 0RF Continued clopidogrel [Plavix] 75 mg tablet 75 mg PO QDAY Qty: 30 0RF escitalopram oxalate 20 mg tablet 20 mg PO QDAY MDD 1 90 Days Qty: 90 0RF omeprazole 40 mg capsule,delayed release(DR/EC) 40 mg PO QDAY MDD 1 90 Days Qty: 90 0RF nifedipine 60 mg tablet extended release 60 mg PO QDAY lubiprostone 8 mcg capsule 8 mcg PO QDAY potassium chloride 20 mEq tablet,ER particles/crystals 20 meq PO QDAY MDD 1 90 Days Qty: 90 0RF metoprolol tartrate 100 mg tablet 100 mg PO BID losartan-hydrochlorothiazide 100-25 mg tablet 1 tab PO QDAY flecainide 100 mg tablet 100 mg PO BID rosuvastatin 40 mg tablet 40 mg PO QDAY Eliquis 5 mg tablet 5 mg PO BID Orders to Discharge Patient Discharge Orders: Discharge (Routine); Ordered 02/19/25 Ordered By: Janice Mcarthur Follow ups/Referrals Follow ups/Referrals: BERTIN SMALL FNP [Primary Care Provider, MEDICAL] Instructions Print Language: BELARUSIAN
== END 2025-02-19 12:45 ==
LOC: ER 14:23 → MED/SURG 14:23
PROVIDERS: ADMIT Family Medicine; ATTEND Family Medicine
DX: R26.89 Other abnormalities of gait and mobility; E87.6 Hypokalemia; M54.89 Other dorsalgia; R53.1 Weakness; R79.89 Other specified abnormal findings of blood chemistry; Z79.01 Long term (current) use of anticoagulants; N17.8 Other acute kidney failure; E83.51 Hypocalcemia; N39.0 Urinary tract infection, site not specified; D64.89 Other specified anemias; E83.42 Hypomagnesemia; R73.09 Other abnormal glucose; I48.91 Unspecified atrial fibrillation; K21.9 Gastro-esophageal reflux disease without esophagitis; R94.31 Abnormal electrocardiogram [ECG] [EKG]; Z59.868 Other specified financial insecurity; R05.3 Chronic cough; Z03.818 Encounter for observation for suspected exposure to other biological agents ruled out; R74.01 Elevation of levels of liver transaminase levels; B96.29 Other Escherichia coli [E. coli] as the cause of diseases classified elsewhere; W18.39XA Other fall on same level, initial encounter; D72.828 Other elevated white blood cell count; F32.89 Other specified depressive episodes; I10 Essential (primary) hypertension; I69.398 Other sequelae of cerebral infarction; Z59.41 Food insecurity; F41.8 Other specified anxiety disorders; Z74.1 Need for assistance with personal care; R51.9 Headache, unspecified; Z59.89 Other problems related to housing and economic circumstances; R94.4 Abnormal results of kidney function studies; Z65.8 Other specified problems related to psychosocial circumstances